=== PATIENT | female | born 1945 | race Caucasian/White ===

== ENCOUNTER 2018-11-14 14:44 | Inpatient (IN) | payer MEDICARE ==
[2018-11-14] MEDS: DUONEB 0.5-3 MG/3 ml Neb IH SCH ×3 (15:24→23:33)
[2018-11-14] MEDS ORDERED: TYLENOL 325 MG PO PRN (17:39)
[2018-11-14 17:52] LABS: Basophil (Absolute #) 0 (0-0.4); Eosinophil (Absolute #) 0 (0-0.5); Granulocyte Absolute (ANC) 16.86 (1.4-6.9); Granulocytes % 83.9 % (36.0-66.0); Hematocrit 39.6 % (35-47); Hemoglobin 12.6 gm/dl (12.0-16.0); Lymphocyte (Absolute #) 2.83 (1.0-4.6); Lymphocytes % 14.1 % (24.0-44.0); Mean Corpuscular Hemoglobin 31.5 pg (26-32); Mean Corpuscular Hgb Concent. 31.8 g/dl (32-36); Mean Platelet Volume 9.2 fl (6-9.5); Platelet Count 307 K/mm3 (150-450); Red Cell Distribution Width 13.2 % (11.5-14.0); White Blood Count 20.1 K/mm3 (4.0-10.5)
[2018-11-14 17:59] LABS: Potassium 4.3 mmol/L (3.5-5.1)
[2018-11-14] MEDS ORDERED: solu-MEDROL 125 MG ONE (18:04)
[2018-11-14 18:06] LABS: ALBUMIN 3.4 g/dL (3.5-5.0); ALKALINE PHOSPHATASE 99 U/L (38-126); BLOOD UREA NITROGEN 17 mg/dL (7-17); CHLORIDE 97 mmol/L (98-107); Calcium 9.1 mg/dL (8.4-10.2); Carbon Dioxide 28 mmol/L (22-30); Creatinine 1 0.49 mg/dL (0.52-1.04); Glucose 121 mg/dL (74-106); NT PRO BNP 165 pg/mL (0-900); SGOT/AST 82 U/L (14-36); SGPT/ALT 219 U/L (0-35); SODIUM 135 mmol/L (137-145); Total Protein 6.4 g/dL (6.3-8.2)
[2018-11-14] MEDS ORDERED: ROCEPHIN 1 Gm-D5w 50 ml Bag** 1 G/50 ML IVPB IV ONE (18:09)
[2018-11-14] MEDS ORDERED: Zithromax 500 MG/ 250 ML NaCl Premix 500 MG/250 ML IVPB IV ONE (18:09)
[2018-11-14 18:12] LABS: ANION GAP 14.3 MEQ/L (5-15)
[2018-11-14] MEDS: Sodium Chloride 0.9% 1000 ML 1,000 ML IV SCH (18:18)
[2018-11-14] MEDS: Zithromax 500 MG/ 250 ML NaCl Premix 500 MG/250 ML IVPB IV SCH ×2 (18:18→19:27)
[2018-11-14] MEDS: solu-MEDROL 40 MG IV SCH (18:24)
[2018-11-14] MEDS: ROCEPHIN 1 Gm-D5w 50 ml Bag** 1 G/50 ML IVPB IV SCH ×2 (18:24→19:28)
[2018-11-14] MEDS ORDERED: DUONEB 0.5-3 MG/3 ml Neb IH SCH (19:00)
[2018-11-15] MEDS ORDERED: xanAX 0.25 MG PO PRN (00:45)
[2018-11-15] MEDS: Toprol Xl 50 MG PO SCH ×3 (01:07→21:29)
[2018-11-15] MEDS: SOMA 350 MG PO SCH ×2 (01:08→21:29)
[2018-11-15] MEDS: Zocor 10MG PO SCH ×2 (01:09→21:31)
[2018-11-15] MEDS: Valium 5 MG PO SCH ×2 (01:09→21:31)
[2018-11-15] MEDS: Zestril 10 MG PO SCH ×3 (01:09→21:31)
[2018-11-15] MEDS: solu-MEDROL 40 MG IV SCH ×3 (02:30→21:28)
[2018-11-15] MEDS: DUONEB 0.5-3 MG/3 ml Neb IH SCH ×6 (03:23→23:21)
[2018-11-15] MEDS ORDERED: Sodium Chloride 0.9% 1000 ML 1,000 ML ONE (06:14)
[2018-11-15] MEDS: Sodium Chloride 0.9% 1000 ML 1,000 ML IV SCH ×2 (06:14→16:47)
[2018-11-15] MEDS ORDERED: Nitrostat 0.4 MG Tablet SL PRN (06:56)
--- NOTE | 2018-11-15 08:53 | XRAY ---
Indication: Short of breath. Comparison: December 25, 2017. PA/lateral chest again demonstrates COPD with new superior segment right lower lobe infiltrate and small effusion. Stable medial left base calcified granuloma. Heart is not enlarged. Bony thorax intact again with mild osteopenia and degenerative changes. Impression: 1. New right lower lobe pneumonic infiltrate with effusion. 2. Stable COPD and evidence for old granulomatous disease.
[2018-11-15] MEDS ORDERED: CALCIUM CARBONATE 1500 MG PO SCH (10:00)
[2018-11-15] MEDS: BUMEX 1 MG PO SCH (10:21)
[2018-11-15] MEDS: Imdur 60MG PO SCH (10:22)
[2018-11-15] MEDS: FOLATE 1 MG PO SCH (10:22)
[2018-11-15] MEDS: MAG-OX 400 PO SCH (10:22)
[2018-11-15] MEDS: Tums EX 750 MG PO SCH ×2 (10:24→21:30)
[2018-11-15 11:23] LABS: Hematocrit 39.6 % (35-47); Hemoglobin 12.4 gm/dl (12.0-16.0); Mean Cell Volume 98.5 fl (78-100); Mean Corpuscular Hemoglobin 30.8 pg (26-32); Mean Corpuscular Hgb Concent. 31.3 g/dl (32-36); Mean Platelet Volume 8.4 fl (6-9.5); Platelet Count 300 K/mm3 (150-450); Red Blood Count 4.02 M/mm3 (4.1-5.4); Red Cell Distribution Width 12.9 % (11.5-14.0); White Blood Count 11.4 K/mm3 (4.0-10.5)
--- NOTE | 2018-11-15 13:21 | PCM.NOTE ---
Date and Time: 11/15/18 1321 Subjective Assessment: doing better - Review of Systems Constitutional: No Fever, No Chills Eyes: No Symptoms Ears, Nose, & Throat: No Symptoms Respiratory: No Cough, No Short Of Breath Cardiac: No Chest Pain, No Edema, No Syncope Abdominal/Gastrointestinal: No Abdominal Pain, No Nausea, No Vomiting, No Diarrhea Genitourinary Symptoms: No Dysuria Musculoskeletal: No Back Pain, No Neck Pain Skin: No Rash Neurological: No Dizziness, No Focal Weakness, No Sensory Changes Psychological: No Symptoms Endocrine: No Symptoms Hematologic/Lymphatic: No Symptoms Immunological/Allergic: No Symptoms Objective Exam General Appearance: no apparent distress, alert Neurologic Exam: alert, oriented x 3, cooperative, normal mood/affect, nml cerebellar function, sensation nml, No motor deficits Skin Exam: normal color, warm, dry Eye Exam: PERRL, EOMI, eyes nml inspection Ears, Nose, Throat Exam: normal ENT inspection, pharynx normal, moist mucous membranes Neck Exam: normal inspection, non-tender, supple, full range of motion Respiratory Exam: normal breath sounds, lungs clear, No respiratory distress Cardiovascular Exam: regular rate/rhythm, normal heart sounds Gastrointestinal/Abdomen Exam: soft, No tenderness, No mass Extremity Exam: normal inspection, normal range of motion Back Exam: normal inspection, normal range of motion, No CVA tenderness, No vertebral tenderness Pelvic Exam: deferred Rectal Exam: deferred OBJECTIVE DATA Vital Signs: Vital Signs - 24 hr Temp Pulse Resp BP Pulse Ox 11/15/18 12:00 97.9 F 87 24 146/84 94 L 11/15/18 10:42 76 18 97 11/15/18 08:00 22 11/15/18 07:10 97.7 F 75 22 131/78 97 11/15/18 06:51 72 16 97 11/15/18 04:00 97.9 F 77 18 105/67 97 11/15/18 03:23 82 18 95 11/15/18 00:00 98.2 F 90 20 140/77 95 11/14/18 23:36 81 18 96 11/14/18 20:10 97.7 F 91 H 17 117/68 96 11/14/18 20:00 17 11/14/18 19:35 77 20 96 11/14/18 17:21 98.2 F 91 H 21 117/68 95 11/14/18 15:53 98.4 F 96 H 22 117/74 95 11/14/18 15:26 96 H 22 95 11/14/18 15:20 98.4 F 96 H 22 117/74 95 Oxygen-Last 24 hours O2 Percentage 3 Liters = 32% O2 Percentage 3 Liters = 32% O2 Percentage 3 Liters = 32% O2 Percentage 3 Liters = 32% O2 Percentage 3 Liters = 32% O2 Percentage 3 Liters = 32% O2 Percentage 3 Liters = 32% O2 Percentage 3 Liters = 32% O2 Percentage 3 Liters = 32% Pain Assessment - Last Documented Pain Intensity 0 Pain Scale Used 0-10 Pain Scale Intake and Output: Intake & Output 11/13/18 11/14/18 11/15/18 11/16/18 11:59 11:59 11:59 11:59 Intake Total 1913 Output Total 1550 Balance 363 Weight 43.7 kg Lab Results: Lab Results-Last 24 Hours 11/14/18 11/14/18 11/15/18 Range/Units 16:00 16:00 11:15 WBC 20.1 H 11.4 H (4.0-10.5) K/mm3 RBC 4.00 L 4.02 L (4.1-5.4) M/mm3 Hgb 12.6 12.4 (12.0-16.0) gm/dl Hct 39.6 39.6 (35-47) % MCV 99.0 98.5 (78-100) fl MCH 31.5 30.8 (26-32) pg MCHC 31.8 L 31.3 L (32-36) g/dl RDW 13.2 12.9 (11.5-14.0) % Plt Count 307 300 (150-450) K/mm3 MPV 9.2 8.4 (6-9.5) fl Gran % 83.9 H (36.0-66.0) % Eos # (Auto) 0 (0-0.5) Absolute Lymphs (auto) 2.83 (1.0-4.6) Absolute Monos (auto) 0.40 (0.0-1.3) Lymphocytes % 14.1 L (24.0-44.0) % Monocytes % 2.0 (0.0-12.0) % Eosinophils % 0.0 (0.00-5.0) % Basophils % 0.0 (0.0-0.4) % Absolute Granulocytes 16.86 H (1.4-6.9) Basophils # 0 (0-0.4) Sodium 135 L (137-145) mmol/L Potassium 4.3 (3.5-5.1) mmol/L Chloride 97 L (98-107) mmol/L Carbon Dioxide 28 (22-30) mmol/L Anion Gap 14.3 (5-15) MEQ/L BUN 17 (7-17) mg/dL Creatinine 0.49 L (0.52-1.04) mg/dL Estimated GFR > 60.0 ML/MIN Glucose 121 H (74-106) mg/dL Calcium 9.1 (8.4-10.2) mg/dL Total Bilirubin 0.60 (0.2-1.3) mg/dL AST 82 H (14-36) U/L ALT 219 H (0-35) U/L Alkaline Phosphatase 99 (38-126) U/L NT-Pro-B Natriuret Pep 165 (0-900) pg/mL Serum Total Protein 6.4 (6.3-8.2) g/dL Albumin 3.4 L (3.5-5.0) g/dL Radiology Exams: Radiology Procedures Category Date Time Status CHEST 2 VIEWS (PA AND LAT) Stat Exams 11/14/18 18:31 Completed Assessment/Plan (1) COPD exacerbation Current Visit: Yes Status: Acute Onset Date: ~11/14/18 Code(s): J44.1 - CHRONIC OBSTRUCTIVE PULMONARY DISEASE W (ACUTE) EXACERBATION
[2018-11-15] MEDS: Miralax Powder 17GM PACKET PO SCH (16:31)
[2018-11-15] MEDS: ROCEPHIN 1 Gm-D5w 50 ml Bag** 1 G/50 ML IVPB IV SCH (21:22)
[2018-11-15] MEDS: Zithromax 500 MG/ 250 ML NaCl Premix 500 MG/250 ML IVPB IV SCH (22:05)
[2018-11-16] MEDS: DUONEB 0.5-3 MG/3 ml Neb IH SCH ×6 (03:43→23:19)
[2018-11-16] MEDS: Sodium Chloride 0.9% 1000 ML 1,000 ML IV SCH (04:57)
[2018-11-16] MEDS: solu-MEDROL 40 MG IV SCH (05:09)
[2018-11-16 05:39] LABS: Hematocrit 36.7 % (35-47); Hemoglobin 11.5 gm/dl (12.0-16.0); Mean Cell Volume 99.5 fl (78-100); Mean Corpuscular Hgb Concent. 31.3 g/dl (32-36); Mean Platelet Volume 8.6 fl (6-9.5); Platelet Count 322 K/mm3 (150-450); Red Blood Count 3.69 M/mm3 (4.1-5.4); Red Cell Distribution Width 12.9 % (11.5-14.0); White Blood Count 11.1 K/mm3 (4.0-10.5)
[2018-11-16 05:56] LABS: Mean Corpuscular Hemoglobin 31.1 pg (26-32)
[2018-11-16] MEDS: Imdur 60MG PO SCH (09:41)
[2018-11-16] MEDS: MAG-OX 400 PO SCH (09:41)
[2018-11-16] MEDS: BUMEX 1 MG PO SCH (09:41)
[2018-11-16] MEDS: Zestril 10 MG PO SCH ×2 (09:41→21:12)
[2018-11-16] MEDS: Toprol Xl 50 MG PO SCH ×2 (09:41→21:13)
[2018-11-16] MEDS: FOLATE 1 MG PO SCH (09:42)
[2018-11-16] MEDS: Tums EX 750 MG PO SCH ×2 (09:42→21:17)
--- NOTE | 2018-11-16 11:38 | PCM.NOTE ---
Date and Time: 11/16/18 1136 Subjective Assessment: doing better - Review of Systems Constitutional: No Fever, No Chills Eyes: No Symptoms Ears, Nose, & Throat: No Symptoms Respiratory: No Cough, No Short Of Breath Cardiac: No Chest Pain, No Edema, No Syncope Abdominal/Gastrointestinal: No Abdominal Pain, No Nausea, No Vomiting, No Diarrhea Genitourinary Symptoms: No Dysuria Musculoskeletal: No Back Pain, No Neck Pain Skin: No Rash Neurological: No Dizziness, No Focal Weakness, No Sensory Changes Psychological: No Symptoms Endocrine: No Symptoms Hematologic/Lymphatic: No Symptoms Immunological/Allergic: No Symptoms Objective Exam General Appearance: no apparent distress, alert Neurologic Exam: alert, oriented x 3, cooperative, normal mood/affect, nml cerebellar function, sensation nml, No motor deficits Skin Exam: normal color, warm, dry Eye Exam: PERRL, EOMI, eyes nml inspection Ears, Nose, Throat Exam: normal ENT inspection, pharynx normal, moist mucous membranes Neck Exam: normal inspection, non-tender, supple, full range of motion Respiratory Exam: normal breath sounds, lungs clear, No respiratory distress Cardiovascular Exam: regular rate/rhythm, normal heart sounds Gastrointestinal/Abdomen Exam: soft, No tenderness, No mass Extremity Exam: normal inspection, normal range of motion Back Exam: normal inspection, normal range of motion, No CVA tenderness, No vertebral tenderness Pelvic Exam: deferred Rectal Exam: deferred OBJECTIVE DATA Vital Signs: Vital Signs - 24 hr Temp Pulse Resp BP Pulse Ox 11/16/18 11:13 80 18 96 11/16/18 07:36 97.8 F 78 20 150/81 98 11/16/18 07:24 85 20 98 11/16/18 04:00 97.6 F 75 16 135/82 96 11/16/18 03:44 76 16 96 11/16/18 00:00 19 11/15/18 23:50 97.7 F 80 19 127/74 97 11/15/18 23:21 78 18 97 11/15/18 20:00 98.1 F 87 18 103/74 95 11/15/18 19:13 85 20 94 L 11/15/18 16:00 98.1 F 87 22 138/73 95 11/15/18 14:31 85 20 96 11/15/18 12:00 97.9 F 87 24 146/84 94 L Oxygen-Last 24 hours O2 Percentage 3 Liters = 32% O2 Percentage 3 Liters = 32% O2 Percentage 3 Liters = 32% O2 Percentage 3 Liters = 32% O2 Percentage 3 Liters = 32% O2 Percentage 3 Liters = 32% Pain Assessment - Last Documented Pain Intensity 3 Pain Scale Used 0-10 Pain Scale Intake and Output: Intake & Output 11/13/18 11/14/18 11/15/18 11/16/18 11:59 11:59 11:59 11:59 Intake Total 1913 4901 Output Total 1550 800 Balance 363 4101 Weight 43.7 kg 43.7 kg Lab Results: Lab Results-Last 24 Hours 11/15/18 11/16/18 Range/Units 11:15 05:06 WBC 11.1 H (4.0-10.5) K/mm3 RBC 3.69 L (4.1-5.4) M/mm3 Hgb 11.5 L (12.0-16.0) gm/dl Hct 36.7 (35-47) % MCV 99.5 (78-100) fl MCH 31.1 (26-32) pg MCHC 31.3 L (32-36) g/dl RDW 12.9 (11.5-14.0) % Plt Count 322 (150-450) K/mm3 MPV 8.6 (6-9.5) fl Anion Gap (5-15) MEQ/L Radiology Exams: Radiology Procedures Category Date Time Status CHEST 2 VIEWS (PA AND LAT) Stat Exams 11/14/18 18:31 Completed Assessment/Plan (1) COPD exacerbation Current Visit: Yes Status: Acute Onset Date: ~11/14/18 Assessment & Plan: Last Vital Signs Temp 97.8 F 11/16/18 07:36 Pulse 80 11/16/18 11:13 Resp 18 11/16/18 11:13 BP 150/81 11/16/18 07:36 Pulse Ox 96 11/16/18 11:13 Allergies clindamycin Allergy (Verified 11/14/18 17:23) levofloxacin [From Levaquin] Allergy (Verified 11/14/18 17:23) meperidine [From Demerol] Allergy (Verified 11/14/18 17:23) Vomiting nalbuphine [From Nubain] Allergy (Verified 11/14/18 17:23) Penicillins Allergy (Verified 11/14/18 17:23) rivaroxaban [From Xarelto] Allergy (Verified 11/14/18 17:23) Active Medications Acetaminophen (Tylenol 325 Mg) 325 mg PO Q4H PRN PRN PRN Reason: PAIN, FEVER, HEADACHE Stop: 12/14/18 17:38 Albuterol/Ipratropium (Duoneb 0.5-3 Mg/3 Ml Neb) 3 ml IH Q4HRT [place] Stop: 12/14/18 14:59 Last Admin: 11/16/18 10:29 Dose: 3 ml Alprazolam (Xanax 0.25 Mg) 0.25 mg PO BID PRN PRN Stop: 12/15/18 00:44 Bumetanide (Bumex 1 Mg) 1 mg PO DAILY [facility] Stop: 12/15/18 09:59 Last Admin: 11/16/18 09:41 Dose: Not Given Calcium Carbonate/Glycine (Tums Ex 750 Mg) 1,500 mg PO BID [place] Stop: 12/15/18 09:59 Last Admin: 11/16/18 09:42 Dose: 1,500 mg Carisoprodol (Soma 350 Mg) 350 mg PO HS [facility] Stop: 12/15/18 00:59 Last Admin: 11/15/18 21:29 Dose: 350 mg Diazepam (Valium 5 Mg) 5 mg PO HS [facility] Stop: 12/15/18 00:59 Last Admin: 11/15/18 21:31 Dose: 5 mg Folic Acid (Folate 1 Mg) 1 mg PO DAILY [place] Stop: 12/15/18 09:59 Last Admin: 11/16/18 09:42 Dose: 1 mg Sodium Chloride (Sodium Chloride 0.9% 1000 Ml) 1,000 mls @ 100 mls/hr IV .Q10H [facility] Stop: 12/14/18 17:44 Last Admin: 11/16/18 04:57 Dose: 100 mls/hr Ceftriaxone Sodium/Dextrose (Rocephin 1 Gm-D5w 50 Ml Bag) 1 g in 50 mls @ 100 mls/hr IV Q24H22 [facility] Stop: 12/15/18 09:59 Last Admin: 11/15/18 21:22 Dose: 100 mls/hr Azithromycin (Zithromax 500 Mg/ 250 Ml Nacl Premix) 500 mg in 250 mls @ 250 mls /hr IV Q24H22 [facility] Stop: 12/15/18 09:59 Last Admin: 11/15/18 22:05 Dose: 250 mls/hr Isosorbide Mononitrate (Imdur 60mg) 60 mg PO DAILY [facility] Stop: 12/15/18 09:59 Last Admin: 11/16/18 09:41 Dose: 60 mg Lisinopril (Zestril 10 Mg) 10 mg PO BID [facility] Stop: 12/15/18 00:59 Last Admin: 11/16/18 09:41 Dose: 10 mg Magnesium Oxide (Mag-Ox 400) 400 mg PO DAILY [facility] Stop: 12/15/18 09:59 Last Admin: 11/16/18 09:41 Dose: 400 mg Methylprednisolone Sodium Succinate (Solu-Medrol 40 Mg) 40 mg IV Q8HT [facility] Stop: 12/14/18 17:44 Last Admin: 11/16/18 05:09 Dose: 40 mg Metoprolol Succinate (Toprol Xl 50 Mg) 25 mg PO BID [facility] Stop: 12/15/18 00:59 Last Admin: 11/16/18 09:41 Dose: 25 mg Nitroglycerin (Nitrostat 0.4 Mg Tablet) 0.4 mg SL Q5MIN PRN MR X 3 PRN PRN Reason: CHEST PAIN Stop: 12/15/18 06:55 Polyethylene Glycol (Miralax Powder 17gm Packet) 17 gm PO 1600 [facility] Stop: 12/15/18 15:59 Last Admin: 11/15/18 16:31 Dose: 17 gm Simvastatin (Zocor 10mg) 10 mg PO HS [facility] Stop: 12/15/18 00:59 Last Admin: 11/15/18 21:31 Dose: 10 mg Intake & Output 11/15/18 11/16/18 11:59 11:59 Intake Total 0923 4901 Output Total 1550 800 Balance 363 4101 Weight 43.7 kg 43.7 kg Orders 11/15/18 14:00 Methylprednisolone Sod Suc 40M [solu-MEDROL 40 MG] 40 mg IV Q8HT 11/15/18 16:00 Polyethylene Glycol 3350 17 gm [Miralax Powder 17GM PACKET] 17 gm PO 1600 11/15/18 22:00 Azithromycin 500 mg/250 ml [Zithromax 500 MG/ 250 ML NaCl Premix] 500 mg in 250 ml IV Q24H22 Ceftriaxone 1 GM/50 ML PREMIX* [ROCEPHIN 1 Gm-D5w 50 ml Bag] 1 g in 50 ml IV Q24H22 Lab Tests 11/15/18 11/16/18 11:15 05:06 WBC 11.1 H RBC 3.69 L Hgb 11.5 L Hct 36.7 MCV 99.5 MCH 31.1 MCHC 31.3 L RDW 12.9 Plt Count 322 MPV 8.6 Anion Gap Code(s): J44.1 - CHRONIC OBSTRUCTIVE PULMONARY DISEASE W (ACUTE) EXACERBATION
[2018-11-16] MEDS ORDERED: MEDROL 4 MG PO SCH ×3 (12:30→22:00)
[2018-11-16] MEDS ORDERED: Sodium Chloride 0.9% 10 ML FLUSH Syringe IV PRN (13:14)
[2018-11-16] MEDS ORDERED: Medrol Dosepack PO SCH (13:15)
[2018-11-16] MEDS ORDERED: Medrol Dosepack ONE (13:24)
[2018-11-16] MEDS: Sodium Chloride 0.9% 10 ML FLUSH Syringe IV SCH ×2 (13:48→21:14)
[2018-11-16] MEDS: Miralax Powder 17GM PACKET PO SCH (16:11)
[2018-11-16] MEDS: ROCEPHIN 1 Gm-D5w 50 ml Bag** 1 G/50 ML IVPB IV SCH (21:08)
[2018-11-16] MEDS: Valium 5 MG PO SCH (21:12)
[2018-11-16] MEDS: Zocor 10MG PO SCH (21:13)
[2018-11-16] MEDS: SOMA 350 MG PO SCH (21:15)
[2018-11-16] MEDS: Zithromax 500 MG/ 250 ML NaCl Premix 500 MG/250 ML IVPB IV SCH (21:52)
[2018-11-17] MEDS: DUONEB 0.5-3 MG/3 ml Neb IH SCH ×3 (03:50→11:06)
[2018-11-17] MEDS: Sodium Chloride 0.9% 10 ML FLUSH Syringe IV SCH (06:31)
[2018-11-17] MEDS ORDERED: MEDROL 4 MG PO SCH (07:30)
[2018-11-17] MEDS: Imdur 60MG PO SCH (07:35)
[2018-11-17] MEDS: BUMEX 1 MG PO SCH (07:35)
[2018-11-17] MEDS: FOLATE 1 MG PO SCH (07:35)
[2018-11-17] MEDS: Zestril 10 MG PO SCH (07:36)
[2018-11-17] MEDS: Toprol Xl 50 MG PO SCH (07:36)
[2018-11-17] MEDS: MAG-OX 400 PO SCH (07:36)
[2018-11-17] MEDS: Tums EX 750 MG PO SCH (07:37)
--- NOTE | 2018-11-17 10:05 | PCM.DS ---
Discharge Summary Date of Admission: 11/14/18 14:58 Admitting Physician: CARLOS MANUEL PAGE Primary Care Provider: RENEE STOVALL Allergies Allergies clindamycin Allergy (Verified 11/14/18 17:23) levofloxacin [From Levaquin] Allergy (Verified 11/14/18 17:23) meperidine [From Demerol] Allergy (Verified 11/14/18 17:23) Vomiting nalbuphine [From Nubain] Allergy (Verified 11/14/18 17:23) Penicillins Allergy (Verified 11/14/18 17:23) rivaroxaban [From Xarelto] Allergy (Verified 11/14/18 17:23) Hospital Summary - Hospital Course Hospital Course: Last Vital Signs Temp 98.2 F 11/17/18 07:11 Pulse 81 11/17/18 07:16 Resp 18 11/17/18 07:42 BP 153/88 11/17/18 07:11 Pulse Ox 98 11/17/18 07:16 Allergies clindamycin Allergy (Verified 11/14/18 17:23) levofloxacin [From Levaquin] Allergy (Verified 11/14/18 17:23) meperidine [From Demerol] Allergy (Verified 11/14/18 17:23) Vomiting nalbuphine [From Nubain] Allergy (Verified 11/14/18 17:23) Penicillins Allergy (Verified 11/14/18 17:23) rivaroxaban [From Xarelto] Allergy (Verified 11/14/18 17:23) Active Medications Acetaminophen (Tylenol 325 Mg) 325 mg PO Q4H PRN PRN PRN Reason: PAIN, FEVER, HEADACHE Stop: 12/14/18 17:38 Albuterol/Ipratropium (Duoneb 0.5-3 Mg/3 Ml Neb) 3 ml IH Q4HRT [facility] Stop: 12/14/18 14:59 Last Admin: 11/17/18 07:15 Dose: 3 ml Alprazolam (Xanax 0.25 Mg) 0.25 mg PO BID PRN PRN Stop: 12/15/18 00:44 Bumetanide (Bumex 1 Mg) 1 mg PO DAILY [facility] Stop: 12/15/18 09:59 Last Admin: 11/17/18 07:35 Dose: Not Given Calcium Carbonate/Glycine (Tums Ex 750 Mg) 1,500 mg PO BID [facility] Stop: 12/15/18 09:59 Last Admin: 11/17/18 07:37 Dose: 1,500 mg Carisoprodol (Soma 350 Mg) 350 mg PO HS [facility] Stop: 12/15/18 00:59 Last Admin: 11/16/18 21:15 Dose: 350 mg Diazepam (Valium 5 Mg) 5 mg PO HS [facility] Stop: 12/15/18 00:59 Last Admin: 11/16/18 21:12 Dose: 5 mg Folic Acid (Folate 1 Mg) 1 mg PO DAILY [facility] Stop: 12/15/18 09:59 Last Admin: 11/17/18 07:35 Dose: 1 mg Ceftriaxone Sodium/Dextrose (Rocephin 1 Gm-D5w 50 Ml Bag) 1 g in 50 mls @ 100 mls/hr IV Q24H22 [facility] Stop: 12/15/18 09:59 Last Admin: 11/16/18 21:08 Dose: 100 mls/hr Azithromycin (Zithromax 500 Mg/ 250 Ml Nacl Premix) 500 mg in 250 mls @ 250 mls /hr IV Q24H22 [facility] Stop: 12/15/18 09:59 Last Admin: 11/16/18 21:52 Dose: 250 mls/hr Isosorbide Mononitrate (Imdur 60mg) 60 mg PO DAILY [facility] Stop: 12/15/18 09:59 Last Admin: 11/17/18 07:35 Dose: 60 mg Lisinopril (Zestril 10 Mg) 10 mg PO BID [facility] Stop: 12/15/18 00:59 Last Admin: 11/17/18 07:36 Dose: 10 mg Magnesium Oxide (Mag-Ox 400) 400 mg PO DAILY [facility] Stop: 12/15/18 09:59 Last Admin: 11/17/18 07:36 Dose: 400 mg Methylprednisolone (Medrol 4 Mg) 4 mg PO 1230 [facility] Stop: 11/19/18 12:31 Last Admin: 11/16/18 13:48 Dose: 4 mg Methylprednisolone (Medrol 4 Mg) 4 mg PO 1830 [facility] Stop: 11/18/18 18:31 Last Admin: 11/16/18 18:32 Dose: 4 mg Methylprednisolone (Medrol 4 Mg) 8 mg PO HS [facility] Stop: 11/17/18 22:01 Last Admin: 11/16/18 21:18 Dose: 8 mg Methylprednisolone (Medrol 4 Mg) 4 mg PO QDAC [facility] Stop: 11/21/18 07:31 Last Admin: 11/17/18 07:34 Dose: 4 mg Methylprednisolone (Medrol 4 Mg) 4 mg PO [facility] Stop: 11/20/18 22:01 Metoprolol Succinate (Toprol Xl 50 Mg) 25 mg PO BID [facility] Stop: 12/15/18 00:59 Last Admin: 11/17/18 07:36 Dose: 25 mg Nitroglycerin (Nitrostat 0.4 Mg Tablet) 0.4 mg SL Q5MIN PRN MR X 3 PRN PRN Reason: CHEST PAIN Stop: 12/15/18 06:55 Polyethylene Glycol (Miralax Powder 17gm Packet) 17 gm PO 1600 [facility] Stop: 12/15/18 15:59 Last Admin: 11/16/18 16:11 Dose: Not Given Simvastatin (Zocor 10mg) 10 mg PO [facility] Stop: 12/15/18 00:59 Last Admin: 11/16/18 21:13 Dose: 10 mg Sodium Chloride (Sodium Chloride 0.9% 10 Ml Flush Syringe) 10 ml IV PRN PRN PRN Reason: FLUSH Stop: 12/16/18 13:13 Sodium Chloride (Sodium Chloride 0.9% 10 Ml Flush Syringe) 10 ml IV Q8HT [facility] Stop: 12/16/18 13:59 Last Admin: 11/17/18 06:31 Dose: 10 ml Intake & Output 11/16/18 11/17/18 11:59 11:59 Intake Total 4901 1100 Output Total 800 3900 Balance 4101 -2800 Weight 43.7 kg Orders 11/16/18 12:30 Methylprednisolone 4 mg [Medrol 4 mg] 4 mg PO 1230 11/16/18 13:14 NaCl 0.9% 10 ML FLUSH [Sodium Chloride 0.9% 10 ML FLUSH Syringe] 10 ml IV PRN PRN 11/16/18 14:00 NaCl 0.9% 10 ML FLUSH [Sodium Chloride 0.9% 10 ML FLUSH Syringe] 10 ml IV Q8HT 11/16/18 18:30 Methylprednisolone 4 mg [Medrol 4 mg] 4 mg PO 1830 11/16/18 22:00 Methylprednisolone 4 mg [Medrol 4 mg] 8 mg PO HS 11/17/18 07:30 Methylprednisolone 4 mg [Medrol 4 mg] 4 mg PO QDAC 11/18/18 22:00 Methylprednisolone 4 mg [Medrol 4 mg] 4 mg PO HS Microbiology 11/15/18 01:30 Sputum - Expectorant Gram Stain - Final 11/15/18 01:30 Sputum - Expectorant Sputum Culture - Preliminary GRAM NEGATIVE ID AND SENSITIVITY PENDING - Vitals & Intake/Output Vital Signs: Vital Signs Temperature 98.2 F 11/17/18 07:11 Pulse Rate 81 11/17/18 07:16 Respiratory Rate 18 11/17/18 07:42 Blood Pressure 153/88 11/17/18 07:11 O2 Sat by Pulse Oximetry 98 11/17/18 07:16 Oxygen-Last Documented O2 Percentage 3 Liters = 32% Intake & Output: Intake & Output 11/14/18 11/15/18 11/16/18 11/17/18 11:59 11:59 11:59 11:59 Intake Total 1913 4901 1100 Output Total 0561 282 9874 Balance 363 4101 -2800 Weight 43.7 kg 43.7 kg - Lab Result Diagrams: 11/16/18 05:06 11/14/18 16:00 Micro Results-Entire Visit: Microbiology 11/15/18 01:30 Gram Stain - Final Sputum - Expectorant Sputum Culture - Preliminary GRAM NEGATIVE ID AND SENSITIVITY PENDING - Procedures and Test Procedures and Tests throughout Hospitalization: Therapy Orders & Screens 11/14/18 15:16 Oxygen NASAL CANNULA 3 lpm Comment: Respiratory Therapy Assessment DAILY Comment: 11/14/18 15:17 Peak Expiratory Flow Rate ONCE Comment: Reason For Exam: 11/14/18 17:39 EKG REPEAT IN AM Comment: Diagnosis: COPD exacerbation, failed outpatient pneumonia EKG STAT Comment: Diagnosis: COPD exacerbation, failed outpatient pneumonia Respiratory Therapy Consult ROUTINE Comment: Reason For Exam: Diagnosis: COPD exacerbation, failed outpatient pneumonia Discharge Exam General Appearance: no apparent distress, alert Neurologic Exam: alert, oriented x 3, cooperative, normal mood/affect, nml cerebellar function, sensation nml, No motor deficits Skin Exam: normal color, warm, dry Eye Exam: PERRL, EOMI, eyes nml inspection Ears, Nose, Throat Exam: normal ENT inspection, pharynx normal, moist mucous membranes Neck Exam: normal inspection, non-tender, supple, full range of motion Respiratory Exam: normal breath sounds, lungs clear, No respiratory distress Cardiovascular Exam: regular rate/rhythm, normal heart sounds Gastrointestinal/Abdomen Exam: soft, No tenderness, No mass Extremity Exam: normal inspection, normal range of motion Back Exam: normal inspection, normal range of motion, No CVA tenderness, No vertebral tenderness Pelvic Exam: deferred Rectal Exam: deferred Final Diagnosis/Problem List - Final Discharge Diagnosis/Problem (1) COPD exacerbation Current Visit: Yes Status: Acute Onset Date: ~11/14/18 Assessment & Plan: Patient is feeling much better, breathing much better Last Vital Signs Temp 98.2 F 11/17/18 07:11 Pulse 81 11/17/18 07:16 Resp 18 11/17/18 07:42 BP 153/88 11/17/18 07:11 Pulse Ox 98 11/17/18 07:16 Allergies clindamycin Allergy (Verified 11/14/18 17:23) levofloxacin [From Levaquin] Allergy (Verified 11/14/18 17:23) meperidine [From Demerol] Allergy (Verified 11/14/18 17:23) Vomiting nalbuphine [From Nubain] Allergy (Verified 11/14/18 17:23) Penicillins Allergy (Verified 11/14/18 17:23) rivaroxaban [From Xarelto] Allergy (Verified 11/14/18 17:23) Active Medications Acetaminophen (Tylenol 325 Mg) 325 mg PO Q4H PRN PRN PRN Reason: PAIN, FEVER, HEADACHE Stop: 12/14/18 17:38 Albuterol/Ipratropium (Duoneb 0.5-3 Mg/3 Ml Neb) 3 ml IH Q4HRT [facility] Stop: 12/14/18 14:59 Last Admin: 11/17/18 07:15 Dose: 3 ml Alprazolam (Xanax 0.25 Mg) 0.25 mg PO BID PRN PRN Stop: 12/15/18 00:44 Bumetanide (Bumex 1 Mg) 1 mg PO DAILY [facility] Stop: 12/15/18 09:59 Last Admin: 11/17/18 07:35 Dose: Not Given Calcium Carbonate/Glycine (Tums Ex 750 Mg) 1,500 mg PO BID [facility] Stop: 12/15/18 09:59 Last Admin: 11/17/18 07:37 Dose: 1,500 mg Carisoprodol (Soma 350 Mg) 350 mg PO HS [facility] Stop: 12/15/18 00:59 Last Admin: 11/16/18 21:15 Dose: 350 mg Diazepam (Valium 5 Mg) 5 mg PO HS [facility] Stop: 12/15/18 00:59 Last Admin: 11/16/18 21:12 Dose: 5 mg Folic Acid (Folate 1 Mg) 1 mg PO DAILY [facility] Stop: 12/15/18 09:59 Last Admin: 11/17/18 07:35 Dose: 1 mg Ceftriaxone Sodium/Dextrose (Rocephin 1 Gm-D5w 50 Ml Bag) 1 g in 50 mls @ 100 mls/hr IV Q24H22 [facility] Stop: 12/15/18 09:59 Last Admin: 11/16/18 21:08 Dose: 100 mls/hr Azithromycin (Zithromax 500 Mg/ 250 Ml Nacl Premix) 500 mg in 250 mls @ 250 mls /hr IV Q24H22 [facility] Stop: 12/15/18 09:59 Last Admin: 11/16/18 21:52 Dose: 250 mls/hr Isosorbide Mononitrate (Imdur 60mg) 60 mg PO DAILY [facility] Stop: 12/15/18 09:59 Last Admin: 11/17/18 07:35 Dose: 60 mg Lisinopril (Zestril 10 Mg) 10 mg PO BID [facility] Stop: 12/15/18 00:59 Last Admin: 11/17/18 07:36 Dose: 10 mg Magnesium Oxide (Mag-Ox 400) 400 mg PO DAILY [facility] Stop: 12/15/18 09:59 Last Admin: 11/17/18 07:36 Dose: 400 mg Methylprednisolone (Medrol 4 Mg) 4 mg PO 1230 [facility] Stop: 11/19/18 12:31 Last Admin: 11/16/18 13:48 Dose: 4 mg Methylprednisolone (Medrol 4 Mg) 4 mg PO 1830 [facility] Stop: 11/18/18 18:31 Last Admin: 11/16/18 18:32 Dose: 4 mg Methylprednisolone (Medrol 4 Mg) 8 mg PO [facility] Stop: 11/17/18 22:01 Last Admin: 11/16/18 21:18 Dose: 8 mg Methylprednisolone (Medrol 4 Mg) 4 mg PO QDAC [facility] Stop: 11/21/18 07:31 Last Admin: 11/17/18 07:34 Dose: 4 mg Methylprednisolone (Medrol 4 Mg) 4 mg PO [facility] Stop: 11/20/18 22:01 Metoprolol Succinate (Toprol Xl 50 Mg) 25 mg PO BID [facility] Stop: 12/15/18 00:59 Last Admin: 11/17/18 07:36 Dose: 25 mg Nitroglycerin (Nitrostat 0.4 Mg Tablet) 0.4 mg SL Q5MIN PRN MR X 3 PRN PRN Reason: CHEST PAIN Stop: 12/15/18 06:55 Polyethylene Glycol (Miralax Powder 17gm Packet) 17 gm PO 1600 [facility] Stop: 12/15/18 15:59 Last Admin: 11/16/18 16:11 Dose: Not Given Simvastatin (Zocor 10mg) 10 mg PO [facility] Stop: 12/15/18 00:59 Last Admin: 11/16/18 21:13 Dose: 10 mg Sodium Chloride (Sodium Chloride 0.9% 10 Ml Flush Syringe) 10 ml IV PRN PRN PRN Reason: FLUSH Stop: 12/16/18 13:13 Sodium Chloride (Sodium Chloride 0.9% 10 Ml Flush Syringe) 10 ml IV Q8HT [facility] Stop: 12/16/18 13:59 Last Admin: 11/17/18 06:31 Dose: 10 ml Intake & Output 11/16/18 11/17/18 11:59 11:59 Intake Total 4901 1100 Output Total 800 3900 Balance 4101 -2800 Weight 43.7 kg Orders 11/16/18 12:30 Methylprednisolone 4 mg [Medrol 4 mg] 4 mg PO 1230 11/16/18 13:14 NaCl 0.9% 10 ML FLUSH [Sodium Chloride 0.9% 10 ML FLUSH Syringe] 10 ml IV PRN PRN 11/16/18 14:00 NaCl 0.9% 10 ML FLUSH [Sodium Chloride 0.9% 10 ML FLUSH Syringe] 10 ml IV Q8HT 11/16/18 18:30 Methylprednisolone 4 mg [Medrol 4 mg] 4 mg PO 1830 11/16/18 22:00 Methylprednisolone 4 mg [Medrol 4 mg] 8 mg PO HS 11/17/18 07:30 Methylprednisolone 4 mg [Medrol 4 mg] 4 mg PO QDAC 11/18/18 22:00 Methylprednisolone 4 mg [Medrol 4 mg] 4 mg PO HS Microbiology 11/15/18 01:30 Sputum - Expectorant Gram Stain - Final 11/15/18 01:30 Sputum - Expectorant Sputum Culture - Preliminary GRAM NEGATIVE ID AND SENSITIVITY PENDING - Discharge Discharge Date: 11/17/18 Disposition: Home, Self-Care Condition: Stable Prescriptions: New Ciprofloxacin [Cipro 500 MG] 500 mg PO BID #20 tablet Continue Polyethylene Glycol 3350 17 gm [Miralax Powder 17GM PACKET] 17 gm PO 1600 Simvastatin 10 mg PO HS Prednisone 10 mg [Deltasone 10 mg] 10 mg PO DAILY Nitroglycerin 0.4 mg Tablet [Nitrostat 0.4 MG Tablet] 0.4 mg SL Q5MIN PRN MR X 3 PRN PRN Reason: Chest Pain Metoprolol Succinate 25 mg PO BID Magnesium Oxide 400 mg [Mag-Ox 400] 400 mg PO DAILY Lisinopril 10 mg [Zestril 10 MG] 10 mg PO BID Isosorbide Mononitrate [Isosorbide Mononitrate ER] 60 mg PO DAILY Folic Acid 1 mg [Folate 1 mg] 1 mg PO DAILY Diazepam 5 mg [Valium 5 MG] 5 mg PO HS Carisoprodol 350 mg [Soma 350 mg] 350 mg PO HS Calcium Carbonate [Tums] 1,500 mg PO BID Bumetanide 1 mg [Bumex 1 mg] 1 mg PO DAILY Alprazolam [Xanax] 0.25 mg PO BID PRN Albuterol Sulfate Mdi [Proair Hfa MDI] 2 puffs IH QID Albuterol 2.5 mg/3 ml Neb [Proventil 2.5 mg/3 ml Neb] 3 ml IH Q4H PRN PRN PRN Reason: sob Instructions: Pneumonia, Adult (DC), Exacerbation of COPD (DC) Follow up with: RENEE STOVALL [Primary Care Provider] - Call for Appointment
[2018-11-17 11:28] VITALS: BP 128/82; PULSE 88; O2SAT 97
[2018-11-18] MEDS ORDERED: MEDROL 4 MG PO SCH (22:00)
== END 2018-11-17 12:10 | disposition home or self-care (01) | DRG 191 ==
LOC: MED SURG 14:58
PROVIDERS: ADMIT General Practice; ATTEND General Practice
DX: J44.1 Chronic obstructive pulmonary disease with (acute) exacerbation (principal); J96.11 Chronic respiratory failure with hypoxia; I10 Essential (primary) hypertension; M81.0 Age-related osteoporosis without current pathological fracture; Z86.73 Personal history of transient ischemic attack (TIA), and cerebral infarction without residual deficits; I11.0 Hypertensive heart disease with heart failure; I50.9 Heart failure, unspecified; Z79.899 Other long term (current) drug therapy
CPT/HCPCS: 36415; 71046; 80048; 80053; 83880; 85025; 85027; 87070; 87077; 87186; 93005; 94150; 94640; 94760; 94762; J0456; J0696; J2920; J2930; A9270-GY

== ENCOUNTER 2018-12-02 09:25 | Inpatient (IN) | payer MEDICARE ==
[2018-12-02] MEDS ORDERED: DUONEB 0.5-3 MG/3 ml Neb IH PRN (14:08)
[2018-12-02] MEDS ORDERED: Sodium Chloride 0.9% 10 ML FLUSH Syringe IV PRN (14:15)
[2018-12-02] MEDS: ROCEPHIN 1 Gm-D5w 50 ml Bag** 1 G/50 ML IVPB IV SCH (14:27)
[2018-12-02] MEDS: solu-MEDROL 125 MG IV SCH ×2 (14:27→21:50)
[2018-12-02 14:28] LABS: A-aADO2 62; ABG HEMOGLOBIN 9.8; ABG POTASSIUM 3.6 (3.5-5.1); ABG SITE RIGHT RADIAL; ALLEN TEST OK? yes; ARTERIAL BLD GAS O2 SATURATION 99.1 % (95-100); ARTERIAL BLOOD GAS BASE EXCESS 7.4 (-2.0-2.0); ARTERIAL BLOOD GAS FIO2 36 %; ARTERIAL BLOOD GAS PCO2 40 mmHg (35-45); ARTERIAL BLOOD GAS PO2 145 mmHg (75-100); CARBOXYHEMOGLOBIN 2.7 % THgb (0.0-6.9); HCO3- 31.2 (22-28); HGB O2 SAT 94.3 g/dF (94-100); Lactic Acid 0.7 (0.4-2.0); Methhemoglobin 2.1 % (1.4-1.5)
[2018-12-02 14:28] LABS: Hematocrit 29.4 % (35-47); Hemoglobin 9.2 gm/dl (12.0-16.0); Mean Corpuscular Hgb Concent. 31.3 g/dl (32-36); Mean Platelet Volume 8.6 fl (6-9.5); Platelet Count 256 K/mm3 (150-450); Red Blood Count 3.03 M/mm3 (4.1-5.4); Red Cell Distribution Width 12.8 % (11.5-14.0); White Blood Count 8.7 K/mm3 (4.0-10.5)
[2018-12-02 14:29] LABS: Mean Corpuscular Hemoglobin 30.3 pg (26-32)
[2018-12-02 14:42] LABS: ALBUMIN 3.1 g/dL (3.5-5.0); BILIRUBIN,TOTAL 0.4 mg/dL (0.2-1.3); Calcium 9.8 mg/dL (8.4-10.2); Creatinine 1 1.41 mg/dL (0.52-1.04); Potassium 3.8 mmol/L (3.5-5.1); Total Protein 6.1 g/dL (6.3-8.2)
[2018-12-02] MEDS ORDERED: Miralax Powder 17GM PACKET PO PRN (15:06)
[2018-12-02] MEDS ORDERED: BUMEX 1 MG PO PRN (15:06)
[2018-12-02] MEDS ORDERED: Nitrostat 0.4 MG Tablet SL PRN (15:06)
[2018-12-02] MEDS ORDERED: xanAX 0.25 MG PO PRN (15:15)
--- NOTE | 2018-12-02 15:17 | XRAY ---
Indication: COPD exacerbation. Comparison: November 26, 2018. PA/lateral chest unchanged again demonstrating right mid to lower lung infiltrate with effusion, right lung fibrosis/scarring, medial left base calcified granuloma, and COPD. Heart and left lung remains unremarkable. No new cardiopulmonary abnormalities.
[2018-12-02] MEDS: DUONEB 0.5-3 MG/3 ml Neb IH SCH ×2 (15:31→19:00)
[2018-12-02] MEDS ORDERED: ALBUTEROL SULFATE MDI IH SCH (17:00)
[2018-12-02] MEDS: Sodium Chloride 0.9% 10 ML FLUSH Syringe IV SCH (21:50)
[2018-12-02] MEDS: Tums EX 750 MG PO SCH (21:50)
[2018-12-02] MEDS: Zocor 10MG PO SCH (21:50)
[2018-12-02] MEDS: Valium 5 MG PO PRN (21:57)
[2018-12-02] MEDS: SOMA 350 MG PO PRN (21:57)
[2018-12-02] MEDS ORDERED: CALCIUM CARBONATE 1500 MG PO SCH (22:00)
[2018-12-03] MEDS: DUONEB 0.5-3 MG/3 ml Neb IH SCH ×4 (05:45→20:37)
[2018-12-03] MEDS: solu-MEDROL 125 MG IV SCH ×2 (05:53→17:05)
[2018-12-03] MEDS: Sodium Chloride 0.9% 10 ML FLUSH Syringe IV SCH ×3 (05:57→22:31)
[2018-12-03 09:05] LABS: Hematocrit 32.4 % (35-47); Hemoglobin 10.1 gm/dl (12.0-16.0); Mean Cell Volume 96.1 fl (78-100); Mean Corpuscular Hgb Concent. 31.2 g/dl (32-36); Platelet Count 269 K/mm3 (150-450); Red Blood Count 3.37 M/mm3 (4.1-5.4); Red Cell Distribution Width 12.6 % (11.5-14.0); White Blood Count 3.5 K/mm3 (4.0-10.5)
[2018-12-03 09:08] LABS: Mean Corpuscular Hemoglobin 29.9 pg (26-32)
--- NOTE | 2018-12-03 09:25 | PCM.HP.ADD ---
Addendum to History & Physical - History & Physical Addendum Addendum to History & Physical: This certifies that the History & Physical in the electronic chart reflects the current health status of the patient. If there are changes in the H&P these changes/exceptions are listed as follows.
--- NOTE | 2018-12-03 09:27 | PCM.NOTE ---
Date and Time: 12/03/18924 Subjective Assessment: still short of breath - Review of Systems Constitutional: No Fever, No Chills Eyes: No Symptoms Ears, Nose, & Throat: No Symptoms Respiratory: Cough, Orthopnea, Short Of Breath, Wheezing Cardiac: No Chest Pain, No Edema, No Syncope Abdominal/Gastrointestinal: No Abdominal Pain, No Nausea, No Vomiting, No Diarrhea Genitourinary Symptoms: No Dysuria Musculoskeletal: No Back Pain, No Neck Pain Skin: No Rash Neurological: No Dizziness, No Focal Weakness, No Sensory Changes Psychological: No Symptoms Endocrine: No Symptoms Hematologic/Lymphatic: No Symptoms Immunological/Allergic: No Symptoms Objective Exam General Appearance: no apparent distress, alert Neurologic Exam: alert, oriented x 3, cooperative, normal mood/affect, nml cerebellar function, sensation nml, No motor deficits Skin Exam: normal color, warm, dry Eye Exam: PERRL, EOMI, eyes nml inspection Ears, Nose, Throat Exam: normal ENT inspection, pharynx normal, moist mucous membranes Neck Exam: normal inspection, non-tender, supple, full range of motion Respiratory Exam: normal breath sounds, prolonged expirations, crackles/rales, rhonchi, No respiratory distress Cardiovascular Exam: regular rate/rhythm, normal heart sounds Gastrointestinal/Abdomen Exam: soft, No tenderness, No mass Extremity Exam: normal inspection, normal range of motion Back Exam: normal inspection, normal range of motion, No CVA tenderness, No vertebral tenderness Pelvic Exam: deferred Rectal Exam: deferred OBJECTIVE DATA Vital Signs: Vital Signs - 24 hr Temp Pulse Resp BP Pulse Ox 12/03/18 07:20 20 12/03/18 07:17 97.8 F 87 20 110/69 99 12/03/18 05:45 77 18 98 12/03/18 04:00 97.5 F 77 16 132/83 100 12/03/18 00:00 97.4 F 79 16 104/70 100 12/02/18 20:00 97.7 F 87 16 86/54 98 12/02/18 19:02 85 16 98 12/02/18 16:00 97.6 F 92 H 18 125/59 100 12/02/18 15:32 76 18 95 12/02/18 14:09 98.3 F 101 H 18 123/74 95 12/02/18 14:08 98.3 F 101 H 18 123/74 95 Oxygen-Last 24 hours O2 Percentage 4 Liters = 36% O2 Percentage 4 Liters = 36% O2 Percentage 4 Liters = 36% O2 Percentage 4 Liters = 36% O2 Percentage 2 Liters = 28% O2 Percentage 4 Liters = 36% O2 Percentage 4 Liters = 36% Pain Assessment - Last Documented Pain Scale [facility] Intake and Output: Intake & Output 11/30/18 12/01/18 12/02/18 12/03/18 11:59 11:59 11:59 11:59 Intake Total 740 Output Total 500 Balance 240 Weight 42.5 kg Lab Results: Lab Results-Last 24 Hours 12/02/18 12/02/18 12/02/18 Range/Units 14:05 14:27 14:27 WBC 8.7 (4.0-10.5) K/mm3 RBC 3.03 L (4.1-5.4) M/mm3 Hgb 9.2 L (12.0-16.0) gm/dl Hct 29.4 L (35-47) % MCV 97.0 (78-100) fl MCH 30.3 (26-32) pg MCHC 31.3 L (32-36) g/dl RDW 12.8 (11.5-14.0) % Plt Count 256 (150-450) K/mm3 MPV 8.6 (6-9.5) fl Puncture Site RIGHT RADIAL pCO2 40 (35-45) mmHg pO2 145 H* (75-100) mmHg Base Excess 7.4 H (-2.0-2.0) O2 Saturation 94.3 (94-100) g/dF ABG pH 7.50 H (7.35-7.45) ABG HCO3 31.2 H* (22-28) ABG O2 Sat (Measured) 99.1 (95-100) % Kaushik Test yes A-a Gradient 62 a/A Ratio 0.70 Hemoglobin 9.8 Carboxyhemoglobin 2.7 (0.0-6.9) % THgb Methemoglobin 2.1 H (1.4-1.5) % Potassium 3.6 3.8 (3.5-5.1) Temperature 37.0 C POC O2 Flow Rate 36 % Sodium 138 (137-145) mmol/L Chloride 103 (98-107) mmol/L Carbon Dioxide 31 H (22-30) mmol/L Anion Gap 9.0 (5-15) MEQ/L BUN 19 H (7-17) mg/dL Creatinine 1.41 H (0.52-1.04) mg/dL Estimated GFR 38.7 ML/MIN Glucose 90 (74-106) mg/dL Lactic Acid 0.7 (0.4-2.0) Calcium 9.8 (8.4-10.2) mg/dL Total Bilirubin 0.40 (0.2-1.3) mg/dL AST 23 (14-36) U/L ALT 21 (0-35) U/L Alkaline Phosphatase 70 (38-126) U/L Troponin I (0.000-0.034) ng/mL Serum Total Protein 6.1 L (6.3-8.2) g/dL Albumin 3.1 L (3.5-5.0) g/dL 12/02/18 12/03/18 Range/Units 14:27 08:59 WBC 3.5 L (4.0-10.5) K/mm3 RBC 3.37 L (4.1-5.4) M/mm3 Hgb 10.1 L (12.0-16.0) gm/dl Hct 32.4 L (35-47) % MCV 96.1 (78-100) fl MCH 29.9 (26-32) pg MCHC 31.2 L (32-36) g/dl RDW 12.6 (11.5-14.0) % Plt Count 269 (150-450) K/mm3 MPV 9.0 (6-9.5) fl Puncture Site pCO2 (35-45) mmHg pO2 (75-100) mmHg Base Excess (-2.0-2.0) O2 Saturation (94-100) g/dF ABG pH (7.35-7.45) ABG HCO3 (22-28) ABG O2 Sat (Measured) (95-100) % Kaushik Test A-a Gradient a/A Ratio Hemoglobin Carboxyhemoglobin (0.0-6.9) % THgb Methemoglobin (1.4-1.5) % Potassium (3.5-5.1) Temperature C POC O2 Flow Rate % Sodium (137-145) mmol/L Chloride (98-107) mmol/L Carbon Dioxide (22-30) mmol/L Anion Gap (5-15) MEQ/L BUN (7-17) mg/dL Creatinine (0.52-1.04) mg/dL Estimated GFR ML/MIN Glucose (74-106) mg/dL Lactic Acid (0.4-2.0) Calcium (8.4-10.2) mg/dL Total Bilirubin (0.2-1.3) mg/dL AST (14-36) U/L ALT (0-35) U/L Alkaline Phosphatase (38-126) U/L Troponin I < 0.012 (0.000-0.034) ng/mL Serum Total Protein (6.3-8.2) g/dL Albumin (3.5-5.0) g/dL Radiology Exams: Radiology Procedures Category Date Time Status CHEST 2 VIEWS (PA AND LAT) Routine Exams 12/02/18 14:30 Completed Assessment/Plan (1) COPD exacerbation Current Visit: No Status: Acute Onset Date: ~11/14/18 Assessment & Plan: Last Vital Signs Temp 97.8 F 12/03/18 07:17 Pulse 87 12/03/18 07:17 Resp 20 12/03/18 07:20 BP 110/69 12/03/18 07:17 Pulse Ox 99 12/03/18 07:17 Allergies clindamycin Allergy (Verified 12/02/18 14:03) levofloxacin [From Levaquin] Allergy (Verified 12/02/18 14:03) meperidine [From Demerol] Allergy (Verified 12/02/18 14:03) Vomiting nalbuphine [From Nubain] Allergy (Verified 12/02/18 14:03) Penicillins Allergy (Verified 12/02/18 14:03) rivaroxaban [From Xarelto] Allergy (Verified 12/02/18 14:03) Active Medications Albuterol Sulfate (Proventil Common Canister) 2 puff IH 1500 [place] Stop: 01/02/19 14:59 Albuterol/Ipratropium (Duoneb 0.5-3 Mg/3 Ml Neb) 3 ml IH QIDRT [facility] Stop: 01/01/19 14:59 Last Admin: 12/03/18 05:45 Dose: 3 ml Albuterol/Ipratropium (Duoneb 0.5-3 Mg/3 Ml Neb) 3 ml IH PRN PRN Stop: 01/01/19 14:07 Alprazolam (Xanax 0.25 Mg) 0.25 mg PO BID PRN PRN Stop: 01/01/19 15:14 Bumetanide (Bumex 1 Mg) 1 mg PO DAILY PRN PRN PRN Reason: fluid retention Stop: 01/01/19 15:05 Calcium Carbonate/Glycine (Tums Ex 750 Mg) 1,500 mg PO BID [facility] Stop: 01/01/19 21:59 Last Admin: 12/02/18 21:50 Dose: 1,500 mg Carisoprodol (Soma 350 Mg) 350 mg PO BID PRN PRN Stop: 01/01/19 15:14 Last Admin: 12/02/18 21:57 Dose: 350 mg Diazepam (Valium 5 Mg) 5 mg PO HSPRN PRN PRN Reason: sleep Stop: 01/01/19 15:05 Last Admin: 12/02/18 21:57 Dose: 5 mg Folic Acid (Folate 1 Mg) 1 mg PO DAILY [facility] Stop: 01/02/19 09:59 Ceftriaxone Sodium/Dextrose (Rocephin 1 Gm-D5w 50 Ml Bag) 1 g in 50 mls @ 100 mls/hr IV DAILY [facility] Stop: 01/01/19 14:59 Last Admin: 12/02/18 14:27 Dose: 100 mls/hr Isosorbide Mononitrate (Imdur 60mg) 60 mg PO DAILY [facility] Stop: 01/02/19 09:59 Magnesium Oxide (Mag-Ox 400) 400 mg PO DAILY [facility] Stop: 01/02/19 09:59 Methylprednisolone Sodium Succinate (Solu-Medrol 125 Mg) 60 mg IV Q12H [facility] Stop: 01/02/19 17:59 Nitroglycerin (Nitrostat 0.4 Mg Tablet) 0.4 mg SL Q5MIN PRN MR X 3 PRN PRN Reason: CHEST PAIN Stop: 01/01/19 15:05 Polyethylene Glycol (Miralax Powder 17gm Packet) 17 gm PO DAILY PRN PRN PRN Reason: CONSTIPATION Stop: 01/01/19 15:05 Simvastatin (Zocor 10mg) 10 mg PO HS [facility] Stop: 01/01/19 21:59 Last Admin: 12/02/18 21:50 Dose: 10 mg Sodium Chloride (Sodium Chloride 0.9% 10 Ml Flush Syringe) 10 ml IV Q8HT [facility] Stop: 01/01/19 21:59 Last Admin: 12/03/18 05:57 Dose: 10 ml Sodium Chloride (Sodium Chloride 0.9% 10 Ml Flush Syringe) 10 ml IV PRN PRN Stop: 01/01/19 14:14 Intake & Output 12/02/18 12/03/18 11:59 11:59 Intake Total 740 Output Total 500 Balance 240 Weight 42.5 kg Orders 12/02/18 14:08 Albuterol/Ipratropium 3ml Neb* [DUONEB 0.5-3 MG/3 ml Neb] 3 ml IH PRN PRN 12/02/18 14:13 Pulse Oximetry .spot check Respiratory Therapy Assessment DAILY 12/02/18 14:14 Peak Expiratory Flow Rate ONCE 12/02/18 14:15 NaCl 0.9% 10 ML FLUSH [Sodium Chloride 0.9% 10 ML FLUSH Syringe] 10 ml IV PRN PRN 12/02/18 14:25 Oxygen Nasal Cannula 4 lpm 12/02/18 15:00 Albuterol/Ipratropium 3ml Neb* [DUONEB 0.5-3 MG/3 ml Neb] 3 ml IH QIDRT Ceftriaxone 1 GM/50 ML PREMIX* [ROCEPHIN 1 Gm-D5w 50 ml Bag] 1 g in 50 ml IV DAILY 12/02/18 22:00 NaCl 0.9% 10 ML FLUSH [Sodium Chloride 0.9% 10 ML FLUSH Syringe] 10 ml IV Q8HT 12/03/18 08:59 CMP Urgent 12/03/18 09:02 Consult Pulmonology ROUTINE 12/03/18 18:00 Methylprednis Sod Succ 125 mg* [solu-MEDROL 125 MG] 60 mg IV Q12H Lab Tests 12/02/18 12/02/18 12/02/18 14:05 14:27 14:27 WBC 8.7 RBC 3.03 L Hgb 9.2 L Hct 29.4 L MCV 97.0 MCH 30.3 MCHC 31.3 L RDW 12.8 Plt Count 256 MPV 8.6 Puncture Site RIGHT RADIAL pCO2 40 pO2 145 H* Base Excess 7.4 H O2 Saturation 94.3 ABG pH 7.50 H ABG HCO3 31.2 H* ABG O2 Sat (Measured) 99.1 Kaushik Test yes A-a Gradient 62 a/A Ratio 0.70 Hemoglobin 9.8 Carboxyhemoglobin 2.7 Methemoglobin 2.1 H Potassium 3.6 3.8 Temperature 37.0 POC O2 Flow Rate 36 Sodium 138 Chloride 103 Carbon Dioxide 31 H Anion Gap 9.0 BUN 19 H Creatinine 1.41 H Estimated GFR 38.7 Glucose 90 Lactic Acid 0.7 Calcium 9.8 Total Bilirubin 0.40 AST 23 ALT 21 Alkaline Phosphatase 70 Troponin I Serum Total Protein 6.1 L Albumin 3.1 L 12/02/18 12/03/18 14:27 08:59 WBC 3.5 L RBC 3.37 L Hgb 10.1 L Hct 32.4 L MCV 96.1 MCH 29.9 MCHC 31.2 L RDW 12.6 Plt Count 269 MPV 9.0 Puncture Site pCO2 pO2 Base Excess O2 Saturation ABG pH ABG HCO3 ABG O2 Sat (Measured) Kaushik Test A-a Gradient a/A Ratio Hemoglobin Carboxyhemoglobin Methemoglobin Potassium Temperature POC O2 Flow Rate Sodium Chloride Carbon Dioxide Anion Gap BUN Creatinine Estimated GFR Glucose Lactic Acid Calcium Total Bilirubin AST ALT Alkaline Phosphatase Troponin I < 0.012 Serum Total Protein Albumin Code(s): J44.1 - CHRONIC OBSTRUCTIVE PULMONARY DISEASE W (ACUTE) EXACERBATION (2) Failure of outpatient treatment Current Visit: Yes Status: Acute Onset Date: ~11/14/18 Code(s): Z78.9 - OTHER SPECIFIED HEALTH STATUS (3) History of recent hospitalization Current Visit: Yes Status: Acute Onset Date: ~11/14/18 Code(s): Z92.89 - PERSONAL HISTORY OF OTHER MEDICAL TREATMENT
[2018-12-03 09:43] LABS: ALBUMIN 3.3 g/dL (3.5-5.0); ANION GAP 11.1 MEQ/L (5-15); BILIRUBIN,TOTAL 0.3 mg/dL (0.2-1.3); Calcium 9.5 mg/dL (8.4-10.2); Creatinine 1 1.22 mg/dL (0.52-1.04); Potassium 4.3 mmol/L (3.5-5.1); Total Protein 6.5 g/dL (6.3-8.2)
[2018-12-03] MEDS: Imdur 60MG PO SCH (09:43)
[2018-12-03] MEDS: MAG-OX 400 PO SCH (09:43)
[2018-12-03] MEDS: ROCEPHIN 1 Gm-D5w 50 ml Bag** 1 G/50 ML IVPB IV SCH (09:43)
[2018-12-03] MEDS: FOLATE 1 MG PO SCH (09:43)
[2018-12-03] MEDS: Tums EX 750 MG PO SCH ×2 (09:44→22:31)
[2018-12-03] MEDS ORDERED: PROVENTIL COMMON CANISTER IH SCH (15:00)
[2018-12-03] MEDS: Zocor 10MG PO SCH (22:30)
[2018-12-03] MEDS: SOMA 350 MG PO PRN (22:38)
[2018-12-03] MEDS: Valium 5 MG PO PRN (22:38)
[2018-12-04] MEDS: solu-MEDROL 125 MG IV SCH ×2 (06:00→18:29)
[2018-12-04] MEDS: DUONEB 0.5-3 MG/3 ml Neb IH SCH ×4 (07:10→19:26)
[2018-12-04] MEDS: FOLATE 1 MG PO SCH (08:28)
[2018-12-04] MEDS: ROCEPHIN 1 Gm-D5w 50 ml Bag** 1 G/50 ML IVPB IV SCH (08:28)
[2018-12-04] MEDS: Tums EX 750 MG PO SCH ×2 (08:28→21:16)
[2018-12-04] MEDS: MAG-OX 400 PO SCH (08:28)
[2018-12-04] MEDS: Imdur 60MG PO SCH (08:28)
[2018-12-04] MEDS: Sodium Chloride 0.9% 10 ML FLUSH Syringe IV SCH ×3 (08:28→21:16)
[2018-12-04] MEDS: SOMA 350 MG PO PRN ×2 (11:33→21:17)
[2018-12-04] MEDS ORDERED: Robitussin AC Syrup Unit Dose Cup PO PRN ×2 (12:59→13:02)
[2018-12-04] MEDS: NORCO 5/325 MG PO PRN (14:50)
--- NOTE | 2018-12-04 15:24 | PCM.NOTE ---
Date and Time: 12/04/18 1523 Subjective Assessment: still short of breath - Review of Systems Constitutional: No Fever, No Chills Eyes: No Symptoms Ears, Nose, & Throat: No Symptoms Respiratory: Cough, Orthopnea, Short Of Breath, Wheezing Cardiac: No Chest Pain, No Edema, No Syncope Abdominal/Gastrointestinal: No Abdominal Pain, No Nausea, No Vomiting, No Diarrhea Genitourinary Symptoms: No Dysuria Musculoskeletal: No Back Pain, No Neck Pain Skin: No Rash Neurological: No Dizziness, No Focal Weakness, No Sensory Changes Psychological: No Symptoms Endocrine: No Symptoms Hematologic/Lymphatic: No Symptoms Immunological/Allergic: No Symptoms Objective Exam General Appearance: no apparent distress, alert Neurologic Exam: alert, oriented x 3, cooperative, normal mood/affect, nml cerebellar function, sensation nml, No motor deficits Skin Exam: normal color, warm, dry Eye Exam: PERRL, EOMI, eyes nml inspection Ears, Nose, Throat Exam: normal ENT inspection, pharynx normal, moist mucous membranes Neck Exam: normal inspection, non-tender, supple, full range of motion Respiratory Exam: normal breath sounds, lungs clear, No respiratory distress Cardiovascular Exam: regular rate/rhythm, normal heart sounds Gastrointestinal/Abdomen Exam: soft, No tenderness, No mass Extremity Exam: normal inspection, normal range of motion Back Exam: normal inspection, normal range of motion, No CVA tenderness, No vertebral tenderness Pelvic Exam: deferred Rectal Exam: deferred OBJECTIVE DATA Vital Signs: Vital Signs - 24 hr Temp Pulse Resp BP Pulse Ox 12/04/18 14:26 98 H 16 95 12/04/18 12:00 18 12/04/18 11:50 98.7 F 100 H 22 142/84 97 12/04/18 10:36 100 H 20 12/04/18 08:00 98.7 F 90 18 151/86 100 12/04/18 07:10 76 20 98 12/04/18 04:15 97.7 F 84 20 131/90 99 12/04/18 04:00 20 12/04/18 00:25 98.1 F 91 H 22 129/73 99 12/04/18 00:00 22 12/03/18 20:37 88 20 98 12/03/18 20:00 20 12/03/18 19:34 98.2 F 97 H 20 106/70 99 12/03/18 16:38 97.4 F 96 H 20 144/69 98 12/03/18 16:00 20 Oxygen-Last 24 hours O2 Percentage 4 Liters = 36% O2 Percentage 4 Liters = 36% O2 Percentage 4 Liters = 36% O2 Percentage 4 Liters = 36% O2 Percentage 4 Liters = 36% Pain Assessment - Last Documented Pain Intensity 6 Pain Scale Used 0-10 Pain Scale Intake and Output: Intake & Output 12/02/18 12/03/18 12/04/18 12/05/18 11:59 11:59 11:59 11:59 Intake Total 740 1640 240 Output Total 500 1700 Balance 240 -60 240 Weight 42.5 kg Radiology Exams: Radiology Procedures Category Date Time Status CHEST 2 VIEWS (PA AND LAT) Routine Exams 12/02/18 14:30 Completed CHEST 2 VIEWS (PA AND LAT) Stat Exams 12/04/18 Ordered Assessment/Plan (1) COPD exacerbation Current Visit: Yes Status: Acute Onset Date: ~11/14/18 Assessment & Plan: Last Vital Signs Temp 98.7 F 12/04/18 11:50 Pulse 98 H 12/04/18 14:26 Resp 16 12/04/18 14:26 BP 142/84 12/04/18 11:50 Pulse Ox 95 12/04/18 14:26 Allergies clindamycin Allergy (Verified 12/02/18 14:03) levofloxacin [From Levaquin] Allergy (Verified 12/02/18 14:03) meperidine [From Demerol] Allergy (Verified 12/02/18 14:03) Vomiting nalbuphine [From Nubain] Allergy (Verified 12/02/18 14:03) Penicillins Allergy (Verified 12/02/18 14:03) rivaroxaban [From Xarelto] Allergy (Verified 12/02/18 14:03) Active Medications Hydrocodone Bitart/Acetaminophen (Condon 5/325 Mg) 1 tab PO Q4H PRN PRN PRN Reason: PAIN Stop: 12/09/18 14:42 Last Admin: 12/04/18 14:50 Dose: 1 tab Albuterol Sulfate (Proventil Common Canister) 2 puff IH 1500 [place] Stop: 01/02/19 14:59 Albuterol/Ipratropium (Duoneb 0.5-3 Mg/3 Ml Neb) 3 ml IH QIDRT [facility] Stop: 01/01/19 14:59 Last Admin: 12/04/18 14:18 Dose: 3 ml Albuterol/Ipratropium (Duoneb 0.5-3 Mg/3 Ml Neb) 3 ml IH PRN PRN Stop: 01/01/19 14:07 Alprazolam (Xanax 0.25 Mg) 0.25 mg PO BID PRN PRN Stop: 01/01/19 15:14 Bumetanide (Bumex 1 Mg) 1 mg PO DAILY PRN PRN PRN Reason: fluid retention Stop: 01/01/19 15:05 Calcium Carbonate/Glycine (Tums Ex 750 Mg) 1,500 mg PO BID [facility] Stop: 01/01/19 21:59 Last Admin: 12/04/18 08:28 Dose: 1,500 mg Carisoprodol (Soma 350 Mg) 350 mg PO BID PRN PRN Stop: 01/01/19 15:14 Last Admin: 12/04/18 11:33 Dose: 350 mg Diazepam (Valium 5 Mg) 5 mg PO HSPRN PRN PRN Reason: sleep Stop: 01/01/19 15:05 Last Admin: 12/03/18 22:38 Dose: 5 mg Folic Acid (Folate 1 Mg) 1 mg PO DAILY [facility] Stop: 01/02/19 09:59 Last Admin: 12/04/18 08:28 Dose: 1 mg Guaifenesin/Codeine Phosphate (Robitussin Ac Syrup Unit Dose Cup) 5 ml PO Q6H/PRN PRN PRN Reason: COUGH Stop: 01/03/19 13:01 Last Admin: 12/04/18 13:09 Dose: 5 ml Ceftriaxone Sodium/Dextrose (Rocephin 1 Gm-D5w 50 Ml Bag) 1 g in 50 mls @ 100 mls/hr IV DAILY [facility] Stop: 01/01/19 14:59 Last Admin: 12/04/18 08:28 Dose: 100 mls/hr Isosorbide Mononitrate (Imdur 60mg) 60 mg PO DAILY [facility] Stop: 01/02/19 09:59 Last Admin: 12/04/18 08:28 Dose: 60 mg Magnesium Oxide (Mag-Ox 400) 400 mg PO DAILY [facility] Stop: 01/02/19 09:59 Last Admin: 12/04/18 08:28 Dose: 400 mg Methylprednisolone Sodium Succinate (Solu-Medrol 125 Mg) 60 mg IV Q12H [facility] Stop: 01/02/19 17:59 Last Admin: 12/04/18 06:00 Dose: 60 mg Nitroglycerin (Nitrostat 0.4 Mg Tablet) 0.4 mg SL Q5MIN PRN MR X 3 PRN PRN Reason: CHEST PAIN Stop: 01/01/19 15:05 Polyethylene Glycol (Miralax Powder 17gm Packet) 17 gm PO DAILY PRN PRN PRN Reason: CONSTIPATION Stop: 01/01/19 15:05 Simvastatin (Zocor 10mg) 10 mg PO HS [facility] Stop: 01/01/19 21:59 Last Admin: 12/03/18 22:30 Dose: 10 mg Sodium Chloride (Sodium Chloride 0.9% 10 Ml Flush Syringe) 10 ml IV Q8HT [facility] Stop: 01/01/19 21:59 Last Admin: 12/04/18 13:44 Dose: 10 ml Sodium Chloride (Sodium Chloride 0.9% 10 Ml Flush Syringe) 10 ml IV PRN PRN Stop: 01/01/19 14:14 Intake & Output 12/04/18 12/05/18 11:59 11:59 Intake Total 1640 240 Output Total 1700 Balance -60 240 Orders 12/03/18 18:00 Methylprednis Sod Succ 125 mg* [solu-MEDROL 125 MG] 60 mg IV Q12H 12/04/18 CHEST 2 VIEWS (PA AND LAT) Stat 12/04/18 13:02 Guaifenesin/Codeine 5 ml [Robitussin AC Syrup Unit Dose Cup] 5 ml PO Q6H /PRN PRN 12/04/18 14:43 Hydrocodone/APAP 5/325 [Condon 5/325 mg] 1 tab PO Q4H PRN PRN 12/04/18 15:19 D-DIMER QUANTITATION Stat 12/04/18 Dinner Regular Diet Code(s): J44.1 - CHRONIC OBSTRUCTIVE PULMONARY DISEASE W (ACUTE) EXACERBATION (2) Failure of outpatient treatment Current Visit: Yes Status: Acute Onset Date: ~11/14/18 Code(s): Z78.9 - OTHER SPECIFIED HEALTH STATUS (3) History of recent hospitalization Current Visit: Yes Status: Acute Onset Date: ~11/14/18 Code(s): Z92.89 - PERSONAL HISTORY OF OTHER MEDICAL TREATMENT
[2018-12-04] MEDS ORDERED: PHARMACY DOSING REQUEST MC ONE (15:58)
--- NOTE | 2018-12-04 16:15 | XRAY ---
Indication: Chest pain. Comparison: December 02, 2018. PA/lateral chest demonstrates new approximately 50% right pneumothorax with moderate fluid leveling. Stable right lung fibrosis/scarring and COPD. Heart and mediastinal structures remain within normal limits. Comment: Immediate electronic report will be given to the ordering clinician.
[2018-12-04] MEDS ORDERED: ENOXAPARIN SODIUM SQ SCH (16:30)
[2018-12-04] MEDS ORDERED: MORPHINE SULFATE 2 MG INJ IV ONE ×2 (17:12→17:38)
[2018-12-04] MEDS ORDERED: MORPHINE SULFATE 2 MG INJ ONE (17:15)
[2018-12-04] MEDS ORDERED: XYLOCAINE 1% HCL 20 ML MDV ONE (17:30)
[2018-12-04] MEDS ORDERED: MORPHINE SULFATE 2 MG INJ IV PRN (18:27)
[2018-12-04] MEDS: Zocor 10MG PO SCH (21:15)
[2018-12-04] MEDS: Valium 5 MG PO PRN (21:17)
[2018-12-05] MEDS: NORCO 5/325 MG PO PRN ×2 (00:42→13:08)
[2018-12-05 06:37] LABS: ANION GAP 7.2 MEQ/L (5-15); BILIRUBIN,TOTAL 0.3 mg/dL (0.2-1.3); Calcium 8.8 mg/dL (8.4-10.2); Creatinine 1 0.97 mg/dL (0.52-1.04); Potassium 4.2 mmol/L (3.5-5.1); Total Protein 5.8 g/dL (6.3-8.2)
[2018-12-05] MEDS: solu-MEDROL 125 MG IV SCH ×2 (06:45→18:55)
[2018-12-05] MEDS: Sodium Chloride 0.9% 10 ML FLUSH Syringe IV SCH ×3 (06:45→22:22)
[2018-12-05] MEDS: DUONEB 0.5-3 MG/3 ml Neb IH SCH ×4 (06:51→21:06)
--- NOTE | 2018-12-05 07:57 | CONS ---
CONSULT DATE: 12/04/2018 REASON FOR CONSULT: Evaluation of shortness of breath, chronic obstructive pulmonary disease exacerbation. HISTORY: Dionne Clark is a 73 year-old pleasant woman with some pulmonary problems, well known to me, who has been sick over the last two to three weeks and hospitalizations. She was again admitted this time with cough, shortness of breath and wheezing. I was asked to consult on the patient. The patient's chest x-ray performed revealed right-sided pneumothorax on 12/02/2018 with repeat x-ray today showing right-sided hydropneumothorax. The patient reportedly has been sick for the last one to two weeks. I explained these findings to the patient and the need for Heimlich valve was discussed which was subsequently placed without any difficulty or side effects. PAST MEDICAL HISTORY: Positive for chronic obstructive pulmonary disease, hypertension, anxiety, hyperlipidemia, history of pulmonary embolism for which she is on anticoagulation, chronic pain syndrome and osteoporosis. PAST SURGICAL HISTORY: She has had back surgery, hysterectomy, cardiac stents and catheterization. PERSONAL AND SOCIAL HISTORY: The patient lives with family, has been a former smoker. MEDICATIONS: Home and current medications are reviewed. ALLERGIES: ALLERGIES NOTED. PHYSICAL EXAMINATION: An elderly frail woman appears mildly tachypneic. The patient is also having chest discomfort for which she was treated with morphine 1 mg IV x2. HEENT: Normocephalic. Pupils are reactive. Oral exam is unremarkable. NECK: Supple. Accessory muscles are prominent. CVS: First and second heart sounds are normal, regular, rhythmic. RESPIRATORY: Shows diminished breath sounds, crackles and rhonchi are heard. ABDOMEN: Soft. EXTREMITIES: No significant edema is noted. LABORATORY DATA AND TESTS: D-dimer was 4300. Sodium 137, potassium 4.3, chloride 98, bicarb 32, glucose 153, BUN 20, creatinine 1.2. White blood cell count 3.5, hemoglobin 10.1, hematocrit 32, PLT 269,000. Troponin was negative. The pH was 7.50, pCO2 40, pO2 145. ASSESSMENT: This is a 73 year old woman admitted with: 1) Acute and chronic hypoxic respiratory failure. 2) Chronic obstructive pulmonary disease with acute exacerbation. 3) Right-side spontaneous pneumothorax now converted to hydropneumothorax. 4) Coronary artery disease. 5) Prior history of pulmonary embolism now with positive D-dimer on anticoagulation. 6) Mild renal insufficiency. 7) Frailty. 8) Anxiety. RECOMMENDATIONS: I agree with the present treatment. The patient had a right Heimlich valve placed, will follow up, x-ray pending. Continue bronchodilators. Will possibility check lower extremity venous Doppler's. If those are negative the patient may require CT or VQ scan. Continue steroids, antibiotics, bronchodilators and other supportive care. Prognosis remains guarded due to advanced cardiopulmonary problems. This was discussed with patient and family.
--- NOTE | 2018-12-05 08:11 | OP ---
PROCEDURE DATE/TIME: 12/04/2018 1818 PREPROCEDURE DIAGNOSIS: Right-sided spontaneous hydropneumothorax. POSTPROCEDURE DIAGNOSIS: Right-sided spontaneous hydropneumothorax. PROCEDURE: Heimlich valve placement. SURGEON: Devaughn Macedo M.D. INDICATIONS: Informed consent was obtained from the patient after explaining details of the procedure, offering alternatives, explained risks and potential complications. DESCRIPTION OF PROCEDURE AND FINDINGS: The patient was sitting in bed at 45 degree reclining angle. Her arm was positioned over her head on the right side. A time out was called for appropriate site. The right infra-axillary area was cleansed and draped in usual sterile manner. 1% lidocaine was infiltrated. Using Heimlich catheter and needle, the right pleural space was punctured and as soon as the pleural space was entered the needle was withdrawn into the Heimlich catheter. The catheter was advanced aiming towards the apex. It was connected to Heimlich valve and was subsequently changed to under water seal. The catheter was secured to skin. Aseptic sterile dressing applied. The patient tolerated the procedure well. Care of catheter per usual protocol. 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
--- NOTE | 2018-12-05 08:38 | XRAY ---
Indication: Chest tube placement. Comparison: Taken earlier in the day. Portable apical lordotic chest demonstrates new right-sided chest tube with the tip projecting over the posterior 6th rib. Right sided pneumothorax and effusion improved with small residual. Remaining heart and left lung unremarkable.
[2018-12-05] MEDS: ROCEPHIN 1 Gm-D5w 50 ml Bag** 1 G/50 ML IVPB IV SCH (09:26)
[2018-12-05] MEDS: ENOXAPARIN SODIUM SQ SCH ×2 (09:26→22:21)
[2018-12-05] MEDS: Imdur 60MG PO SCH (09:26)
[2018-12-05] MEDS: FOLATE 1 MG PO SCH (09:26)
[2018-12-05] MEDS: MAG-OX 400 PO SCH (09:26)
[2018-12-05] MEDS: Tums EX 750 MG PO SCH ×2 (09:38→22:22)
[2018-12-05] MEDS: Toprol-Xl 25MG Tablets PO SCH ×2 (09:42→22:22)
[2018-12-05] MEDS: Zestril 10 MG PO SCH ×2 (09:42→22:22)
--- NOTE | 2018-12-05 09:52 | XRAY ---
Indication: Elevated d-dimer. Two-dimensional sonogram and color Doppler imaging of the major venous vessels of the left and right leg was performed. Comparison: None No thrombus seen in the examined deep venous vessels of the left and right leg including greater saphenous veins. Veins demonstrate normal compressibility. Venous waveforms are normal with and without augmentation. Impression: Left and right legs negative for DVT.
--- NOTE | 2018-12-05 09:52 | XRAY ---
Indication: Follow-up pneumothorax. Comparison: One day earlier. Portable chest again demonstrates right chest tube with the tip now projecting over the posterior 9th rib. No obvious pneumothorax but increasing small right effusion. Remaining heart and lungs stable including right lung fibrosis/scarring and COPD.
[2018-12-05 10:10] LABS: Hematocrit 30.3 % (35-47); Hemoglobin 9.4 gm/dl (12.0-16.0); Mean Cell Volume 97.1 fl (78-100); Mean Corpuscular Hemoglobin 30.1 pg (26-32); Mean Platelet Volume 9.7 fl (6-9.5); Platelet Count 281 K/mm3 (150-450); Red Blood Count 3.12 M/mm3 (4.1-5.4); Red Cell Distribution Width 12.6 % (11.5-14.0); White Blood Count 8.4 K/mm3 (4.0-10.5)
--- NOTE | 2018-12-05 12:23 | PCM.NOTE ---
Date and Time: 12/05/18 1220 Subjective Assessment: last 24 hours events noted, Patient has hydropneumothorax, on right side, s/p chest tube placement - Review of Systems Constitutional: No Fever, No Chills Eyes: No Symptoms Ears, Nose, & Throat: No Symptoms Respiratory: Cough, Orthopnea, Short Of Breath, Wheezing Cardiac: No Chest Pain, No Edema, No Syncope Abdominal/Gastrointestinal: No Abdominal Pain, No Nausea, No Vomiting, No Diarrhea Genitourinary Symptoms: No Dysuria Musculoskeletal: No Back Pain, No Neck Pain Skin: No Rash Neurological: No Dizziness, No Focal Weakness, No Sensory Changes Psychological: No Symptoms Endocrine: No Symptoms Hematologic/Lymphatic: No Symptoms Immunological/Allergic: No Symptoms Objective Exam General Appearance: no apparent distress, alert Neurologic Exam: alert, oriented x 3, cooperative, normal mood/affect, nml cerebellar function, sensation nml, No motor deficits Skin Exam: normal color, warm, dry Eye Exam: PERRL, EOMI, eyes nml inspection Ears, Nose, Throat Exam: normal ENT inspection, pharynx normal, moist mucous membranes Neck Exam: normal inspection, non-tender, supple, full range of motion Respiratory Exam: respiratory distress, diminished breath sounds, wheezing Cardiovascular Exam: regular rate/rhythm, normal heart sounds Gastrointestinal/Abdomen Exam: soft, No tenderness, No mass Extremity Exam: normal inspection, normal range of motion Back Exam: normal inspection, normal range of motion, No CVA tenderness, No vertebral tenderness Pelvic Exam: deferred Rectal Exam: deferred OBJECTIVE DATA Vital Signs: Vital Signs - 24 hr Temp Pulse Resp BP BP Pulse Ox 12/05/18 10:35 83 16 98 12/05/18 09:10 80 16 98 12/05/18 08:00 16 12/05/18 07:32 97.8 F 87 20 180/100 99 12/05/18 04:05 98.1 F 79 20 158/91 99 12/05/18 04:00 18 12/05/18 00:10 98.2 F 80 18 133/83 100 12/05/18 00:00 20 12/04/18 20:10 98.1 F 90 20 168/87 99 12/04/18 20:00 20 12/04/18 19:29 90 20 99 12/04/18 16:00 98.3 F 94 H 20 152/93 99 12/04/18 15:43 18 12/04/18 14:26 98 H 16 95 Oxygen-Last 24 hours O2 Percentage 4 Liters = 36% O2 Percentage 4 Liters = 36% O2 Percentage 4 Liters = 36% O2 Percentage 4 Liters = 36% O2 Percentage 4 Liters = 36% Pain Assessment - Last Documented Pain Intensity 0 Pain Scale Used 0-10 Pain Scale Intake and Output: Intake & Output 12/03/18 12/04/18 12/05/18 12/06/18 11:59 11:59 11:59 11:59 Intake Total 740 1640 780 Output Total 500 1700 2400 Balance Weight 42.5 kg Lab Results: Lab Results-Last 24 Hours 12/04/18 12/05/18 12/05/18 Range/Units 15: 05:00 05:28 WBC 8.4 (4.0-10.5) K/mm3 RBC 3.12 L (4.1-5.4) M/mm3 Hgb 9.4 L (12.0-16.0) gm/dl Hct 30.3 L (35-47) % MCV 97.1 (78-100) fl MCH 30.1 (26-32) pg MCHC 31.0 L (32-36) g/dl RDW 12.6 (11.5-14.0) % Plt Count 281 (150-450) K/mm3 MPV 9.7 H (6-9.5) fl D-Dimer 4300 H* (215-500) ng/mL Sodium 135 L (137-145) mmol/L Potassium 4.2 (3.5-5.1) mmol/L Chloride 101 (98-107) mmol/L Carbon Dioxide 31 H (22-30) mmol/L Anion Gap 7.2 (5-15) MEQ/L BUN 25 H (7-17) mg/dL Creatinine 0.97 (0.52-1.04) mg/dL Estimated GFR 59.7 ML/MIN Glucose 100 (74-106) mg/dL Calcium 8.8 (8.4-10.2) mg/dL Total Bilirubin 0.30 (0.2-1.3) mg/dL AST 19 (14-36) U/L ALT 18 (0-35) U/L Alkaline Phosphatase 56 (38-126) U/L Serum Total Protein 5.8 L (6.3-8.2) g/dL Albumin 3.0 L (3.5-5.0) g/dL Radiology Exams: Radiology Procedures Category Date Time Status CHEST 1 VIEW (PORTABLE) Routine Exams 12/05/18 08:00 Completed CHEST 1 VIEW (PORTABLE) Urgent Exams 12/04/18 18:20 Completed CHEST 2 VIEWS (PA AND LAT) Stat Exams 12/04/18 15:28 Completed PULMONARY PERF PARTICULATE [NUCMED] Urgent Exams 12/05/18 08:55 Ordered PULMONARY PERF VENTILATION [NUCMED] Urgent Exams 12/05/18 08:55 Ordered VENOUS BILATERAL EXTREMITY [US] Routine Exams 12/05/18 08:00 Completed Multi-Disciplinary Progress Notes: Multi-Disciplinary Progress Notes 12/04/18 15:20 (created 12/04/18 17:28) Case Management Note by Pamela Cano DR. ROUNDED AND EVALUATED, PT'S C/O PAIN MID STERNUM THROUGH BACK WITH BREATHING. STAT ORDERS FOR DDIMER AND CT CHEST TO R/O PNEUMO. DISCUSSED WITH PT. PT VERBALIZED UNDERSTANDING. AWAIT DR. STOVALL TO CONSULT. PT DENIES ADDNL NEEDS AT PRESENT. PLANS TO RETURN HOME WITH ON DISCHARGE. Initialized on 12/04/18 17:28 - END OF NOTE Assessment/Plan (1) Hydropneumothorax Current Visit: Yes Status: Acute Assessment & Plan: s/p chest tube placement Code(s): J94.8 - OTHER SPECIFIED PLEURAL CONDITIONS (2) COPD exacerbation Current Visit: Yes Status: Acute Onset Date: ~11/14/18 Code(s): J44.1 - CHRONIC OBSTRUCTIVE PULMONARY DISEASE W (ACUTE) EXACERBATION (3) Failure of outpatient treatment Current Visit: Yes Status: Acute Onset Date: ~11/14/18 Code(s): Z78.9 - OTHER SPECIFIED HEALTH STATUS (4) History of recent hospitalization Current Visit: Yes Status: Acute Onset Date: ~11/14/18 Code(s): Z92.89 - PERSONAL HISTORY OF OTHER MEDICAL TREATMENT
--- NOTE | 2018-12-05 16:37 | XRAY ---
Indication: Chest discomfort. Short of breath. Elevated d-dimer. CHF. Right pneumothorax. Patient received 4.6 mCi technetium 99 MAA for the perfusion portion of the exam. The patient inhaled approximately 29.5 mCi of aerosolized technetium 99 DTPA. Multiplanar images obtained. Comparison: None Perfusion images demonstrates diffuse heterogeneous radiopharmaceutical activity. Moderate-sized right base and left upper lobe nonsegmental perfusion defects. Smaller right apical nonsegmental perfusion defect. No other focal perfusion defect. Ventilation images demonstrates marked diffuse heterogeneous radiopharmaceutical activity predominantly more central favoring chronic obstructive disease. Matched right base, right apical, and left upper lobe nonsegmental ventilation defects. Impression: Matched nonsegmental ventilation/perfusion defects in the right base, right base, and left upper lobe. Same day chest radiograph demonstrates right pneumothorax and right effusion which probably accounts for the matched right lung ventilation/perfusion defects. No radiographic abnormality corresponding to matched left upper lobe nonsegmental ventilation/perfusion defect. Difficult to characterize high probability or low probability and therefore PIOPED criteria for pulmonary embolus is intermediate probability.
[2018-12-05] MEDS: SOMA 350 MG PO PRN (22:21)
[2018-12-05] MEDS: Zocor 10MG PO SCH (22:22)
[2018-12-05] MEDS: Valium 5 MG PO PRN (22:22)
[2018-12-06] MEDS: solu-MEDROL 125 MG IV SCH ×2 (05:27→18:51)
[2018-12-06] MEDS: Sodium Chloride 0.9% 10 ML FLUSH Syringe IV SCH ×3 (05:28→22:17)
[2018-12-06] MEDS: DUONEB 0.5-3 MG/3 ml Neb IH SCH ×4 (07:29→18:44)
[2018-12-06] MEDS ORDERED: PROVENTIL COMMON CANISTER IH PRN (08:31)
--- NOTE | 2018-12-06 08:42 | XRAY ---
Indication: Right-sided chest pain. Chest tube. Comparison: One day earlier. Portable chest demonstrates stable right-sided chest tube, small apical pneumothorax, and small effusion with new small subcutaneous emphysema at chest tube insertion site. Remaining heart and lungs also stable including right lung fibrosis/scarring and COPD.
[2018-12-06] MEDS: ENOXAPARIN SODIUM SQ SCH ×2 (09:31→22:16)
[2018-12-06] MEDS: MAG-OX 400 PO SCH (09:32)
[2018-12-06] MEDS: Toprol-Xl 25MG Tablets PO SCH ×2 (09:32→22:17)
[2018-12-06] MEDS: FOLATE 1 MG PO SCH (09:32)
[2018-12-06] MEDS: Imdur 60MG PO SCH (09:32)
[2018-12-06] MEDS: Tums EX 750 MG PO SCH ×2 (09:34→22:17)
[2018-12-06] MEDS: Zestril 10 MG PO SCH ×2 (09:34→22:17)
[2018-12-06] MEDS: ROCEPHIN 1 Gm-D5w 50 ml Bag** 1 G/50 ML IVPB IV SCH (09:43)
--- NOTE | 2018-12-06 13:45 | PCM.NOTE ---
Date and Time: 12/06/18 1343 Subjective Assessment: doing better - Review of Systems Constitutional: No Fever, No Chills Eyes: No Symptoms Ears, Nose, & Throat: No Symptoms Respiratory: No Cough, No Short Of Breath Cardiac: No Chest Pain, No Edema, No Syncope Abdominal/Gastrointestinal: No Abdominal Pain, No Nausea, No Vomiting, No Diarrhea Genitourinary Symptoms: No Dysuria Musculoskeletal: No Back Pain, No Neck Pain Skin: No Rash Neurological: No Dizziness, No Focal Weakness, No Sensory Changes Psychological: No Symptoms Endocrine: No Symptoms Hematologic/Lymphatic: No Symptoms Immunological/Allergic: No Symptoms Objective Exam General Appearance: no apparent distress, alert Neurologic Exam: alert, oriented x 3, cooperative, normal mood/affect, nml cerebellar function, sensation nml, No motor deficits Skin Exam: normal color, warm, dry Eye Exam: PERRL, EOMI, eyes nml inspection Ears, Nose, Throat Exam: normal ENT inspection, pharynx normal, moist mucous membranes Neck Exam: normal inspection, non-tender, supple, full range of motion Respiratory Exam: diminished breath sounds, No respiratory distress Cardiovascular Exam: regular rate/rhythm, normal heart sounds Gastrointestinal/Abdomen Exam: soft, No tenderness, No mass Extremity Exam: normal inspection, normal range of motion Back Exam: normal inspection, normal range of motion, No CVA tenderness, No vertebral tenderness Pelvic Exam: deferred Rectal Exam: deferred OBJECTIVE DATA Vital Signs: Vital Signs - 24 hr Temp Pulse Resp BP Pulse Ox 12/06/18 12:00 20 12/06/18 11:31 98.5 F 78 20 111/74 98 12/06/18 11:24 72 18 99 12/06/18 08:00 72 16 99 12/06/18 07:54 97.8 F 76 20 171/93 98 12/06/18 04:00 98.3 F 79 20 144/89 100 12/06/18 02:21 78 17 97 12/06/18 00:15 98.0 F 72 20 142/80 99 12/06/18 00:00 20 12/05/18 21:08 80 20 98 12/05/18 20:15 97.4 F 80 20 119/74 99 12/05/18 20:00 20 12/05/18 16:14 97.8 F 79 20 128/81 100 12/05/18 16:00 20 12/05/18 15:36 85 18 96 Oxygen-Last 24 hours O2 Percentage 4 Liters = 36% O2 Percentage 4 Liters = 36% O2 Percentage 4 Liters = 36% O2 Percentage 4 Liters = 36% O2 Percentage 4 Liters = 36% O2 Percentage 4 Liters = 36% Oxygen Flowrate (L/min)-RT 4 Pain Assessment - Last Documented Pain Intensity 5 Pain Scale Used FLACC Intake and Output: Intake & Output 12/04/18 12/05/18 12/06/18 12/07/18 11:59 11:59 11:59 11:59 Intake Total 1532 770 2425 Output Total 1700 2400 3570 120 Balance -60 -1620 -2330 -120 Weight 42.5 kg Radiology Exams: Radiology Procedures Category Date Time Status CHEST 1 VIEW (PORTABLE) Routine Exams 12/05/18 08:00 Completed CHEST 1 VIEW (PORTABLE) Urgent Exams 12/04/18 18:20 Completed CHEST 1 VIEW (PORTABLE) Urgent Exams 12/06/18 07:53 Completed CHEST 2 VIEWS (PA AND LAT) Stat Exams 12/04/18 15:28 Completed PULMONARY PERF VENTILATION [NUCMED] Urgent Exams 12/05/18 08:55 Completed VENOUS BILATERAL EXTREMITY [US] Routine Exams 12/05/18 08:00 Completed Multi-Disciplinary Progress Notes: Multi-Disciplinary Progress Notes 12/06/18 02:31 Respiratory Note by Edin Linder PT CALLED FOR RT STATING THAT SHE WOKE UP HAVING AN UNCOMFORTABLE FEELING IN THE RIGHT SIDE OF HER CHEST AREA. SHE STATED THAT IT WAS NOT PAINFUL OR SHARP. SATS WERE 97 ON 4LPM, HR WAS 78, AND RR WAS 17. BS WERE DIMINISHED ALL THRUOUGHT. I REQUESTED NURSING TO ASSESS CHEST TUBE. PT STATED THAT SHE FELT THO SHE COULD BENEFIT FROM THE INHALER. I GAVE PT TWO PUFFS OF ALBUTEROL. NURSING ADJUSTED SUCTION ON CHEST TUBE. Initialized on 12/06/18 02:31 - END OF NOTE Assessment/Plan (1) Status post chest tube placement Current Visit: Yes Status: Acute Code(s): Z93.8 - OTHER ARTIFICIAL OPENING STATUS (2) Hydropneumothorax Current Visit: Yes Status: Resolved Code(s): J94.8 - OTHER SPECIFIED PLEURAL CONDITIONS (3) COPD exacerbation Current Visit: Yes Status: Acute Onset Date: ~11/14/18 Code(s): J44.1 - CHRONIC OBSTRUCTIVE PULMONARY DISEASE W (ACUTE) EXACERBATION (4) Failure of outpatient treatment Current Visit: Yes Status: Acute Onset Date: ~11/14/18 Code(s): Z78.9 - OTHER SPECIFIED HEALTH STATUS (5) History of recent hospitalization Current Visit: Yes Status: Acute Onset Date: ~11/14/18 Code(s): Z92.89 - PERSONAL HISTORY OF OTHER MEDICAL TREATMENT
[2018-12-06] MEDS: NORCO 5/325 MG PO PRN (14:58)
[2018-12-06] MEDS: Zocor 10MG PO SCH (22:17)
[2018-12-06] MEDS: SOMA 350 MG PO PRN (22:20)
[2018-12-06] MEDS: Valium 5 MG PO PRN (22:20)
[2018-12-07] MEDS: NORCO 5/325 MG PO PRN (01:11)
[2018-12-07] MEDS: solu-MEDROL 125 MG IV SCH (05:09)
[2018-12-07] MEDS: Sodium Chloride 0.9% 10 ML FLUSH Syringe IV SCH (05:09)
[2018-12-07] MEDS: DUONEB 0.5-3 MG/3 ml Neb IH SCH ×2 (07:50→11:28)
[2018-12-07 08:38] VITALS: BP 167/85
[2018-12-07] MEDS: ENOXAPARIN SODIUM SQ SCH (10:11)
[2018-12-07] MEDS: MAG-OX 400 PO SCH (10:12)
[2018-12-07] MEDS: Imdur 60MG PO SCH (10:12)
[2018-12-07] MEDS: Zestril 10 MG PO SCH (10:12)
[2018-12-07] MEDS: FOLATE 1 MG PO SCH (10:12)
[2018-12-07] MEDS: Toprol-Xl 25MG Tablets PO SCH (10:12)
[2018-12-07] MEDS: ROCEPHIN 1 Gm-D5w 50 ml Bag** 1 G/50 ML IVPB IV SCH (10:12)
[2018-12-07] MEDS: Tums EX 750 MG PO SCH (10:13)
--- NOTE | 2018-12-07 10:26 | PCM.NOTE ---
Date and Time: 12/07/18 1025 Subjective Assessment: doing better - Review of Systems Constitutional: No Fever, No Chills Eyes: No Symptoms Ears, Nose, & Throat: No Symptoms Respiratory: Short Of Breath, No Cough Cardiac: No Chest Pain, No Edema, No Syncope Abdominal/Gastrointestinal: No Abdominal Pain, No Nausea, No Vomiting, No Diarrhea Genitourinary Symptoms: No Dysuria Musculoskeletal: No Back Pain, No Neck Pain Skin: No Rash Neurological: No Dizziness, No Focal Weakness, No Sensory Changes Psychological: No Symptoms Endocrine: No Symptoms Hematologic/Lymphatic: No Symptoms Immunological/Allergic: No Symptoms Objective Exam General Appearance: no apparent distress, alert Neurologic Exam: alert, oriented x 3, cooperative, normal mood/affect, nml cerebellar function, sensation nml, No motor deficits Skin Exam: normal color, warm, dry Eye Exam: PERRL, EOMI, eyes nml inspection Ears, Nose, Throat Exam: normal ENT inspection, pharynx normal, moist mucous membranes Neck Exam: normal inspection, non-tender, supple, full range of motion Respiratory Exam: normal breath sounds, lungs clear, No respiratory distress Cardiovascular Exam: regular rate/rhythm, normal heart sounds Gastrointestinal/Abdomen Exam: soft, No tenderness, No mass Extremity Exam: normal inspection, normal range of motion Back Exam: normal inspection, normal range of motion, No CVA tenderness, No vertebral tenderness Pelvic Exam: deferred Rectal Exam: deferred OBJECTIVE DATA Vital Signs: Vital Signs - 24 hr Temp Pulse Resp BP Pulse Ox 12/07/18 08:00 22 12/07/18 07:53 83 22 98 12/07/18 07:00 98.2 F 76 20 167/85 99 12/07/18 04:00 19 12/07/18 03:00 97.5 F 77 19 132/86 98 12/07/18 01:20 83 20 95 12/07/18 00:00 18 12/06/18 23:00 97.8 F 84 18 117/67 98 12/06/18 20:00 18 12/06/18 19:00 98.2 F 81 17 129/77 98 12/06/18 18:55 97 12/06/18 18:48 83 20 97 12/06/18 16:00 18 12/06/18 15:00 97.8 F 81 20 119/71 100 12/06/18 14:47 82 18 97 12/06/18 12:00 20 12/06/18 11:31 98.5 F 78 20 111/74 98 12/06/18 11:24 72 18 99 Oxygen-Last 24 hours O2 Percentage 4 Liters = 36% O2 Percentage 4 Liters = 36% O2 Percentage 4 Liters = 36% O2 Percentage 4 Liters = 36% O2 Percentage 4 Liters = 36% Oxygen Flowrate (L/min)-RT 4 Oxygen Flowrate (L/min)-RT 4 Pain Assessment - Last Documented Pain Intensity 6 Pain Scale Used FLACC Intake and Output: Intake & Output 12/04/18 12/05/18 12/06/18 12/07/18 11:59 11:59 11:59 11:59 Intake Total 4290 592 0791 1220 Output Total 1700 2400 3570 1395 Balance -60 -1620 -2330 -175 Weight 42.5 kg Radiology Exams: Radiology Procedures Category Date Time Status CHEST 1 VIEW (PORTABLE) Urgent Exams 12/06/18 07:53 Completed CHEST 2 VIEWS (PA AND LAT) Routine Exams 12/07/18 10:00 Taken Assessment/Plan (1) Status post chest tube placement Current Visit: Yes Status: Acute Code(s): Z93.8 - OTHER ARTIFICIAL OPENING STATUS (2) Hydropneumothorax Current Visit: Yes Status: Resolved Code(s): J94.8 - OTHER SPECIFIED PLEURAL CONDITIONS (3) COPD exacerbation Current Visit: Yes Status: Acute Onset Date: ~11/14/18 Code(s): J44.1 - CHRONIC OBSTRUCTIVE PULMONARY DISEASE W (ACUTE) EXACERBATION (4) Failure of outpatient treatment Current Visit: Yes Status: Acute Onset Date: ~11/14/18 Code(s): Z78.9 - OTHER SPECIFIED HEALTH STATUS (5) History of recent hospitalization Current Visit: Yes Status: Acute Onset Date: ~11/14/18 Code(s): Z92.89 - PERSONAL HISTORY OF OTHER MEDICAL TREATMENT
--- NOTE | 2018-12-07 11:25 | PCM.DS ---
Discharge Summary Date of Admission: 12/03/18 09:25 Admitting Physician: CARLOS MANUEL PAGE Consults: Consults on Case 12/03/18 09:02 Consult Pulmonology ROUTINE Primary Care Provider: RENEE MACEDO Allergies Allergies clindamycin Allergy (Verified 12/02/18 14:03) levofloxacin [From Levaquin] Allergy (Verified 12/02/18 14:03) meperidine [From Demerol] Allergy (Verified 12/02/18 14:03) Vomiting nalbuphine [From Nubain] Allergy (Verified 12/02/18 14:03) Penicillins Allergy (Verified 12/02/18 14:03) rivaroxaban [From Xarelto] Allergy (Verified 12/02/18 14:03) Hospital Summary - Hospital Course Hospital Course: Chief Complaint Diagnosis COPD exacerbation Allergies Allergy/AdvReac Type Severity Reaction Status Date / Time clindamycin Allergy Verified 12/02/18 14:03 levofloxacin [From Levaquin] Allergy Verified 12/02/18 14:03 meperidine [From Demerol] Allergy Vomiting Verified 12/02/18 14:03 nalbuphine [From Nubain] Allergy Verified 12/02/18 14:03 Penicillins Allergy Verified 12/02/18 14:03 rivaroxaban [From Xarelto] Allergy Verified 12/02/18 14:03 Vital Signs (Last 24 hours) Temp Pulse Resp BP Pulse Ox 12/07/18 08:00 22 12/07/18 07:53 83 22 98 12/07/18 07:00 98.2 F 76 20 167/85 99 12/07/18 04:00 19 12/07/18 03:00 97.5 F 77 19 132/86 98 12/07/18 01:20 83 20 95 12/07/18 00:00 18 12/06/18 23:00 97.8 F 84 18 117/67 98 12/06/18 20:00 18 12/06/18 19:00 98.2 F 81 17 129/77 98 12/06/18 18:55 97 12/06/18 18:48 83 20 97 12/06/18 16:00 18 12/06/18 15:00 97.8 F 81 20 119/71 100 12/06/18 14:47 82 18 97 12/06/18 12:00 20 12/06/18 11:31 98.5 F 78 20 111/74 98 12/06/18 11:24 72 18 99 Home Medications Medication Instructions Recorded Confirmed Last Taken Type Albuterol/Ipratropium 3ml Neb* 3 ml IH QID 12/02/18 12/02/18 12/02/18 History [DUONEB 0.5-3 MG/3 ml Neb] Current Medications Generic Name Dose Route Start Last Admin Trade Name Freq PRN Reason Stop Dose Admin Hydrocodone Bitart/Acetaminophen 1 tab 12/04/18 14:43 12/07/18 01:11 Paxton 5/325 Mg PO 12/09/18 14:42 1 tab Q4H PRN PRN Administration PAIN Albuterol Sulfate 2 puff 12/06/18 08:31 Proventil Common Canister IH 01/05/19 08:30 Q4HPRN PRN SHORTNESS OF BREATH/WHEEZING Albuterol/Ipratropium 3 ml 12/02/18 15:00 12/07/18 07:50 Duoneb 0.5-3 Mg/3 Ml Neb IH 01/01/19 14:59 3 ml QIDRT NOL[place] Administration Albuterol/Ipratropium 3 ml 12/02/18 14:08 12/07/18 00:57 Duoneb 0.5-3 Mg/3 Ml Neb IH 01/01/19 14:07 3 ml PRN PRN Administration Alprazolam 0.25 mg 12/02/18 15:15 12/07/18 08:26 Xanax 0.25 Mg PO 01/01/19 15:14 0.25 mg BID PRN PRN Administration Bumetanide 1 mg 12/02/18 15:06 Bumex 1 Mg PO 01/01/19 15:05 DAILY PRN PRN fluid retention Calcium Carbonate/Glycine 1,500 mg 12/02/18 22:00 12/07/18 10:13 Tums Ex 750 Mg PO 01/01/19 21:59 1,500 mg BID NOLA Administration Carisoprodol 350 mg 12/02/18 15:15 12/06/18 22:20 Soma 350 Mg PO 01/01/19 15:14 350 mg BID PRN PRN Administration Diazepam 5 mg 12/02/18 15:06 12/06/18 22:20 Valium 5 Mg PO 01/01/19 15:05 5 mg HSPRN PRN Administration sleep Enoxaparin Sodium 40 mg 12/05/18 10:00 12/07/18 10:11 Enoxaparin Sodium SQ 01/04/19 09:59 40 mg Q12HT NOL[place] Administration Folic Acid 1 mg 12/03/18 10:00 12/07/18 10:12 Folate 1 Mg PO 01/02/19 09:59 1 mg DAILY NOLA Administration Guaifenesin/Codeine Phosphate 5 ml 12/04/18 13:02 12/04/18 13:09 Robitussin Ac Syrup Unit Dose Cup PO 01/03/19 13:01 5 ml Q6H/PRN PRN Administration COUGH Ceftriaxone Sodium/Dextrose 1 g in 50 mls @ 100 mls/hr 12/02/18 15:00 10:12 Rocephin 1 Gm-D5w 50 Ml Bag IV 01/01/19 14:59 100 mls/hr DAILY NOLA Administration Isosorbide Mononitrate 60 mg 12/03/18 10:00 12/07/18 10:12 Imdur 60mg PO 01/02/19 09:59 60 mg DAILY NOLA Administration Lisinopril 10 mg 12/05/18 10:00 12/07/18 10:12 Zestril 10 Mg PO 01/04/19 09:59 10 mg BID NOLA Administration Magnesium Oxide 400 mg 12/03/18 10:00 12/07/18 10:12 Mag-Ox 400 PO 01/02/19 09:59 400 mg DAILY NOLA Administration Methylprednisolone Sodium Succinate 60 mg 12/03/18 18:00 12/07/18 05:09 Solu-Medrol 125 Mg IV 01/02/19 17:59 60 mg Q12H N[place] Administration Metoprolol Succinate 25 mg 12/05/18 10:00 12/07/18 10:12 Toprol-Xl 25mg Tablets PO 01/04/19 09:59 25 mg BID NOLA Administration Morphine Sulfate 0 mg 12/04/18 18:27 Morphine Sulfate 2 Mg Inj IV 12/09/18 18:26 Q4H PRN PRN PAIN Nitroglycerin 0.4 mg 12/02/18 15:06 Nitrostat 0.4 Mg Tablet SL 01/01/19 15:05 Q5MIN PRN MR X 3 PRN CHEST PAIN Polyethylene Glycol 17 gm 12/02/18 15:06 12/05/18 22:21 Miralax Powder 17gm Packet PO 01/01/19 15:05 17 gm DAILY PRN PRN Administration CONSTIPATION Simvastatin 10 mg 12/02/18 22:00 12/06/18 22:17 Zocor 10mg PO 01/01/19 21:59 10 mg HS NOLA Administration Sodium Chloride 10 ml 12/02/18 22:00 12/07/18 05:09 Sodium Chloride 0.9% 10 Ml Flush Syringe IV 01/01/19 21:59 10 ml Q8HT N[place] Administration Sodium Chloride 10 ml 12/02/18 14:15 Sodium Chloride 0.9% 10 Ml Flush Syringe IV 01/01/19 14:14 PRN PRN Discontinued Medications Generic Name Dose Route Start Last Admin Trade Name Freq PRN Reason Stop Dose Admin Albuterol Sulfate 2 puff 12/03/18 15:00 12/06/18 02:17 Proventil Common Canister IH 01/02/19 14:59 2 puff 1500 NOLA Administration Enoxaparin Sodium 40 mg 12/04/18 16:30 12/04/18 18:29 Enoxaparin Sodium SQ 01/03/19 16:29 40 mg DAILY N[place]A Administration Guaifenesin/Codeine Phosphate 5 ml 12/04/18 12:59 Robitussin Ac Syrup Unit Dose Cup PO 01/03/19 12:58 Q4H PRN PRN COUGH Lidocaine HCl Confirm 12/04/18 17:30 Xylocaine 1% Hcl 20 Ml Mdv Administered 12/04/18 17:31 Dose 1 ml .ROUTE .STK-MED ONE Methylprednisolone Sodium Succinate 60 mg 12/02/18 14:30 12/03/18 05:53 Solu-Medrol 125 Mg IV 01/01/19 14:29 60 mg Q8HT NOLA Administration Morphine Sulfate 1 mg 12/04/18 17:12 12/04/18 17:16 Morphine Sulfate 2 Mg Inj IV 12/04/18 17:13 1 mg STAT ONE Administration Morphine Sulfate Confirm 12/04/18 17:15 Morphine Sulfate 2 Mg Inj Administered 12/04/18 17:16 Dose 2 mg .ROUTE .STK-MED ONE Morphine Sulfate 1 mg 12/04/18 17:38 12/04/18 17:50 Morphine Sulfate 2 Mg Inj IV 12/04/18 17:39 1 mg STAT ONE Administration Intake & Output (Last 24 hours) 12/04/18 12/05/18 12/06/18 12/07/18 11:59 11:59 11:59 11:59 Intake Total 5450 861 7929 1220 Output Total 1700 2400 3570 1395 Balance -60 -1620 -2330 -175 Weight 42.5 kg Orders (Last 24 hours) Category Date Time Status Recertification ROUTINE Admission 12/07/18 10:41 Active Miscellaneous Nursing Order ROUTINE Care 12/06/18 16:04 Active CHEST 2 VIEWS (PA AND LAT) Routine Exams 12/07/18 10:00 Taken Patient Care Notes (Last 24 hours) 12/07/18 08:08 Nursing Note by Domi Saucedo 0800 Clamped chest tube, Pt. tolerated well. Chest xray ordered for 1000. Initialized on 12/07/18 08:08 - END OF NOTE 12/06/18 12:18 Nursing Note by Warner Terrell Educated client on 4 of her medications. Educated client on medication action, side effects, and any drug interaction.Client comprehended information and was able to ask any questions that she had. Client was pleasant. Client had no complaints of respiratory distress this AM. [facility] WITH [facility] 1 Initialized on 12/06/18 12:18 - END OF NOTE CXR showed chest tube is out in subcuteneous area with 20 % pneumothorax,, Dr Wilda Macedo(pul) wants patient to be transferred to [facility]. - Vitals & Intake/Output Vital Signs: Vital Signs Temperature 98.2 F 12/07/18 07:00 Pulse Rate 83 12/07/18 07:53 Respiratory Rate 22 12/07/18 08:00 Blood Pressure 167/85 12/07/18 07:00 O2 Sat by Pulse Oximetry 98 12/07/18 07:53 Oxygen-Last Documented O2 Percentage 4 Liters = 36% Intake & Output: Intake & Output 12/04/18 12/05/18 12/06/18 12/07/18 11:59 11:59 11:59 11:59 Intake Total 7490 124 0574 1220 Output Total 1700 2400 3570 1395 Balance -60 -1620 -2330 -175 Weight 42.5 kg - Lab Result Diagrams: 12/05/18 05:00 12/05/18 05:28 - Radiology Exams Ordered Rad Exams-Entire Visit: Radiology Procedures Category Date Time Status CHEST 1 VIEW (PORTABLE) Urgent Exams 12/06/18 07:53 Completed CHEST 2 VIEWS (PA AND LAT) Routine Exams 12/07/18 10:00 Taken - Procedures and Test Procedures and Tests throughout Hospitalization: Therapy Orders & Screens 12/02/18 14:13 Respiratory Therapy Assessment DAILY Comment: Diagnosis: COPD exacerbation 12/02/18 14:14 Peak Expiratory Flow Rate ONCE Comment: Reason For Exam: Diagnosis: COPD exacerbation 12/02/18 14:25 Oxygen Nasal Cannula 4 lpm Comment: Diagnosis: COPD exacerbation Discharge Exam General Appearance: no apparent distress, alert Neurologic Exam: alert, oriented x 3, cooperative, normal mood/affect, nml cerebellar function, sensation nml, No motor deficits Skin Exam: normal color, warm, dry Eye Exam: PERRL, EOMI, eyes nml inspection Ears, Nose, Throat Exam: normal ENT inspection, pharynx normal, moist mucous membranes Neck Exam: normal inspection, non-tender, supple, full range of motion Respiratory Exam: normal breath sounds, lungs clear, No respiratory distress Cardiovascular Exam: regular rate/rhythm, normal heart sounds Gastrointestinal/Abdomen Exam: soft, No tenderness, No mass Extremity Exam: normal inspection, normal range of motion Back Exam: normal inspection, normal range of motion, No CVA tenderness, No vertebral tenderness Pelvic Exam: deferred Rectal Exam: deferred Final Diagnosis/Problem List - Final Discharge Diagnosis/Problem (1) Status post chest tube placement Current Visit: Yes Status: Acute Assessment & Plan: Patient chest tube was clamped in AM but after that patient developed leak and develop extensive subcuteneous emphysema. Patient is being transferred to [facility] (2) Hydropneumothorax Current Visit: Yes Status: Acute (3) COPD exacerbation Current Visit: Yes Status: Acute Onset Date: ~11/14/18 (4) Failure of outpatient treatment Current Visit: Yes Status: Acute Onset Date: ~11/14/18 (5) History of recent hospitalization Current Visit: Yes Status: Acute Onset Date: ~11/14/18 - Discharge Discharge Date: 12/07/18 [facility] Condition: Stable Prescriptions: No Action Polyethylene Glycol 3350 17 gm [Miralax Powder 17GM PACKET] 17 gm PO DAILY PRN PRN PRN Reason: Constipation Simvastatin 10 mg PO HS Nitroglycerin 0.4 mg Tablet [Nitrostat 0.4 MG Tablet] 0.4 mg SL Q5MIN PRN MR X 3 PRN PRN Reason: Chest Pain Metoprolol Succinate 25 mg PO BID Magnesium Oxide 400 mg [Mag-Ox 400] 400 mg PO DAILY Lisinopril 10 mg [Zestril 10 MG] 10 mg PO BID Isosorbide Mononitrate [Isosorbide Mononitrate ER] 60 mg PO DAILY Folic Acid 1 mg [Folate 1 mg] 1 mg PO DAILY Diazepam 5 mg [Valium 5 MG] 5 mg PO HSPRN PRN PRN Reason: sleep Carisoprodol 350 mg [Soma 350 mg] 350 mg PO BID PRN Calcium Carbonate [Tums] 1,500 mg PO BID Bumetanide 1 mg [Bumex 1 mg] 1 mg PO DAILY PRN PRN PRN Reason: fluid retention Alprazolam [Xanax] 0.25 mg PO BID PRN Albuterol Sulfate Mdi [Proair Hfa MDI] 2 puffs IH QID Albuterol/Ipratropium 3ml Neb* [DUONEB 0.5-3 MG/3 ml Neb] 3 ml IH QID Follow up with: WILDA MACEDO [ACTIVE STAFF] - 12/24/18 2:30 pm (at [facility]) RENEE MACEDO [Primary Care Provider] - 12/13/18 11:15 am
[2018-12-07 11:44] VITALS: PULSE 88; O2SAT 100
[2018-12-07] MEDS ORDERED: VASOTEC I.V. 2.5 MG IV ONE (11:45)
--- NOTE | 2018-12-07 20:01 | XRAY ---
Indication: Chest pain. Short of breath. Pneumothorax. Comparison: One day earlier. Portable chest demonstrates extensive worsening diffuse right chest and lesser degree left clavicular subcutaneous emphysema. Previous right chest tube is now outside the chest cavity presumed in the chest wall soft tissues. Right pneumothorax slightly worsened, approximately 25%. Stable right upper lung fibrosis/scarring. Heart/mediastinal structures within normal limits and not deviated. Impression: 1. Right-sided chest tube is now outside the chest cavity with slight worsening right pneumothorax. 2. Extensive worsening subcutaneous emphysema, right chest greater than left. Comment: Preliminary interpretation was made by [facility]. No discrepancy.
== END 2018-12-07 11:38 | disposition short-term general hospital (02) | DRG 190 ==
LOC: MED SURG 09:25 → OBSVTOIN 12-03 09:25
PROVIDERS: ADMIT General Practice; ATTEND General Practice
PROC: 0W9930Z Drainage of Right Pleural Cavity with Drainage Device, Percutaneous Approach (ICD-10-PCS; principal; 2018-12-04)
DX: J44.1 Chronic obstructive pulmonary disease with (acute) exacerbation (principal); J15.9 Unspecified bacterial pneumonia; J96.11 Chronic respiratory failure with hypoxia; I11.0 Hypertensive heart disease with heart failure; J94.8 Other specified pleural conditions; I10 Essential (primary) hypertension; E78.5 Hyperlipidemia, unspecified; F34.1 Dysthymic disorder; K21.9 Gastro-esophageal reflux disease without esophagitis; G89.4 Chronic pain syndrome; Z79.899 Other long term (current) drug therapy
CPT/HCPCS: 32551; 36415; 36600; 71045; 71046; 78582; 80053; 82375; 82803; 83605; 84484; 85027; 85379; 93268; 93970; 94150; 94640; 94760; A9540; G0378; J0696; J1650; J2270; J2930; A9270-GY